=== PATIENT | male | born 1965 | race Caucasian/White ===

== ENCOUNTER → 2017-08-15 | Outpatient (CLI) | payer BC | END | disposition home or self-care (01) | LOC: C.RDSM 15:41 | PROVIDERS: ATTEND Orthopaedic Surgery | DX: R52 Pain, unspecified (principal) ==

== ENCOUNTER → 2017-09-03 | Outpatient (CLI) | payer OTHER ==
[2017-09-03 10:45] LABS: BASO % 0.1 %; BASO ABS # 0.01 K/uL (0-0.2); EOS % 1.3 %; EOS ABS # 0.09 K/uL (0-0.5); HEMATOCRIT 46.1 % (42-52); HEMOGLOBIN 16.3 g/dL (14.0-18.0); IG# 0.01 K/uL (0.00-0.02); LYMPH % 31.9 %; LYMPH ABS # 2.25 K/uL (1.2-3.4); MEAN CELL VOLUME 91.3 fL (80-100); MEAN CORPUSCULAR HEMOGLOBIN 32.3 pg (25-34); MEAN CORPUSCULAR HGB CONC 35.4 g/dl (32-36); MEAN PLATELET VOLUME 9.6 fL (7.4-10.4); MONO % 4.8 %; MONO ABS # 0.34 K/uL (0.11-0.59); NEUT % 61.8 %; NEUT ABS # 4.36 K/uL (1.4-6.5); PLATELET COUNT 205 K/uL (130-400); RED CELL DISTRIBUTION WIDTH CV 12.9 % (11.5-14.5); RED CELL DISTRIBUTION WIDTH SD 42.9 fL (36.4-46.3); WHITE BLOOD COUNT 7.06 K/uL (4.8-10.8)
[2017-09-03 11:04] LABS: ALBUMIN 4.1 gm/dl (3.4-5.0); ALT/SGPT 29 U/L (12-78); AST/SGOT 19 U/L (15-37); BLOOD UREA NITROGEN 14 mg/dl (7-18); CALCIUM 9.1 mg/dl (8.5-10.1); CARBON DIOXIDE 32 mmol/L (21-32); CREATININE 1.05 mg/dl (0.60-1.40); GLUCOSE 89 mg/dl (70-99); POTASSIUM 3.6 mmol/L (3.5-5.1); SODIUM 137 mmol/L (136-145)
[2017-09-03 11:06] LABS: ALKALINE PHOSPHATASE 88 U/L (45-117); CHOLESTEROL 161 mg/dl (0-200); LDL CHOLESTEROL CALCULATED 83 mg/dl; TOTAL PROTEIN 7.6 gm/dl (6.4-8.2)
== END | disposition home or self-care (01) ==
LOC: C.LAB1850 09:56
PROVIDERS: ATTEND Physician Assistant
DX: E78.00 Pure hypercholesterolemia, unspecified (principal)

== ENCOUNTER → 2017-09-16 | Outpatient (CLI) | payer OTHER | END | disposition home or self-care (01) | LOC: C.LAB1850 08:51 | PROVIDERS: ATTEND Internal Medicine | DX: Z00.00 Encounter for general adult medical examination without abnormal findings (principal); Z12.5 Encounter for screening for malignant neoplasm of prostate ==

== ENCOUNTER 2022-02-04 05:18 | Inpatient (IN) ==
--- NOTE | 2022-01-30 08:31 | Anesthesiology Consultation ---
Date of Service January 30, 2022 Assessment & Plan (1) Encounter for pre-operative examination: Chart Review Chart Review: Acceptable Risk for Surgery and Patient NOT seen in Pre Admission Testing Consults Requested none History Surgery Operation Date: 02/04/22 08:50 Proposed Procedures p Left Total Shoulder Arthroplasty Hany - Clark Ascencio, Height/Weight Height: 5 ft 6 in Weight: 77.111 kg Allergies Allergy/AdvReac Type Severity Reaction Status Date / Time cat dander Allergy Verified 01/29/22 15:32 dog dander Allergy Verified 01/29/22 15:32 grass pollen Allergy Verified 01/29/22 15:32 house dust mite Allergy Verified 01/29/22 15:32 mold Allergy Verified 01/29/22 15:32 ragweed pollen Allergy Verified 01/29/22 15:32 tree and shrub pollen Allergy Verified 01/29/22 15:32 weed pollen Allergy Verified 01/29/22 15:32 lisinopril AdvReac Unknown Swelling Verified 01/29/22 15:32 of the lips potential ? amlodipine AdvReac swelling Verified 01/29/22 15:32 Medications Home Medications Medication Instructions Recorded Confirmed Last Taken lorazepam 0.5 mg tablet 0.5 mg PO DAILY PRN #30 tab 06/01/21 01/29/22 Unknown fluticasone propionate 50 2 spray INTRANASAL QPM 07/12/21 01/29/22 Unknown mcg/actuation nasal spray,suspension cholecalciferol (vitamin D3) 2,000 units PO QAM 07/17/21 01/29/22 Unknown cyanocobalamin (vitamin B-12) 1,000 mcg PO QAM 07/17/21 01/29/22 Unknown bupropion HCl 100 mg tablet,12 hr 100 mg PO QAM #30 ea 08/10/21 01/29/22 Unknown sustained-release (Wellbutrin SR) atorvastatin 10 mg tablet 10 mg PO QAM #90 tab 10/11/21 01/29/22 Unknown allergy drops 1 dose SUBLINGUAL TID 01/04/22 01/29/22 Unknown losartan 100 1 tab PO QAM #90 tab 01/16/22 01/29/22 Unknown mg-hydrochlorothiazide 25 mg tablet pregabalin 100 mg capsule (Lyrica) 100 mg PO QPM #90 cap 01/22/22 01/29/22 Unknown metoprolol succinate 25 mg 25 mg PO QAM 01/29/22 01/29/22 Unknown tablet,extended release 24 hr Past Medical History Medical History Anxiety stable per pt, following with PCP and therapist Arrhythmia Chronic intermittent palpitations without associated symptoms, negative cardiac work-up at time of onset years ago per pt. Denies change or worsening. Depression stable per pt, following with PCP and therapist Diverticulitis last episode 2019, follows with PCP and routine colonoscopies Heart palpitations recent holter monitor study [place] -- per pt, wnl. sees Sreedhar Salamanca PA-C History of COVID-19 11/19, mild symptoms-symptoms fully resolved Hyperlipidemia Hypertension well controlled, stable per pt Osteoarthritis Tinnitus, bilateral Worse left Past Family History Family History Mother Cardiac disorder Hypertension Myocardial infarction Grandmother (Maternal) Cardiac disorder Myocardial infarction Sister Hypertension Brother Hypertension Grandfather (Maternal) Stroke Grandmother (Paternal) Cancer Grandfather (Paternal) Myocardial infarction Other No family history of bleeding disorder Denies family history of Ovarian cancer Prostate cancer Breast cancer Colorectal cancer Past Surgical History Surgical History H/O toe surgery Right first toe cheilectomy > 10 yrs ago History of colonoscopy History of sinus surgery Image guided endoscopic sinus surgery, septoplasty, bilateral inferior turbinate reduction 08/06/[address] Lee: Grade 3 view, MAC#3, ETT (size not noted)-atraumatic x 1. No issues per anesthesia record. History of tonsillectomy History of total shoulder replacement right Social History Smoking Status: Never smoker Do You Dip or Chew Tobacco: No Hx Alcohol Use: Yes Alcohol type: beer and wine alcohol intake frequency: 0-2 drinks per day Hx Substance Use: No substance use type: does not use Testing Electrocardiogram Date: 07/17/21 Findings: + NSR @ Echocardiogram Date: 01/21/22 EF: 55 LV Function: normal Valvular Disease: + no significant valvular disease
--- NOTE | 2022-01-31 14:16 | History & Physical Report ---
Date of Service January 31, 2022 Assessment & Plan (1) Osteoarthritis of left shoulder: We will proceed with a left reverse shoulder arthroplasty. Postoperatively he will will be placed in a sling and kept overnight in the hospital for postoperative medical management. He plans to use energy physical therapy upon discharge. History of Present Illness Chief Complaint: Osteoarthritis left shoulder. Primary Care Provider: Bianca Campo MD Anjum is a pleasant 56-year-old male who is been dealing with chronic worsening left shoulder pain. He is a history of a right shoulder replacement in the past which did not go well. After failing extensive conservative treatment with his left shoulder, he is elected proceed with a left reverse shoulder arthroplasty. Allergies Allergy/AdvReac Type Severity Reaction Status Date / Time cat dander Allergy Verified 01/29/22 15:32 dog dander Allergy Verified 01/29/22 15:32 grass pollen Allergy Verified 01/29/22 15:32 house dust mite Allergy Verified 01/29/22 15:32 mold Allergy Verified 01/29/22 15:32 ragweed pollen Allergy Verified 01/29/22 15:32 tree and shrub pollen Allergy Verified 01/29/22 15:32 weed pollen Allergy Verified 01/29/22 15:32 lisinopril AdvReac Unknown Swelling Verified 01/29/22 15:32 of the lips potential ? amlodipine AdvReac swelling Verified 01/29/22 15:32 Home Medications Medication Instructions Recorded Confirmed Type lorazepam 0.5 mg tablet 0.5 mg PO DAILY PRN #30 tab 06/01/21 01/29/22 Rx fluticasone propionate 50 2 spray INTRANASAL QPM 07/12/21 01/29/22 History mcg/actuation nasal spray,suspension cholecalciferol (vitamin D3) 2,000 units PO QAM 07/17/21 01/29/22 History cyanocobalamin (vitamin B-12) 1,000 mcg PO QAM 07/17/21 01/29/22 History bupropion HCl 100 mg tablet,12 hr 100 mg PO QAM #30 ea 08/10/21 01/29/22 Rx sustained-release (Wellbutrin SR) atorvastatin 10 mg tablet 10 mg PO QAM #90 tab 10/11/21 01/29/22 Rx allergy drops 1 dose SUBLINGUAL TID 01/04/22 01/29/22 History losartan 100 1 tab PO QAM #90 tab 01/16/22 01/29/22 Rx mg-hydrochlorothiazide 25 mg tablet pregabalin 100 mg capsule (Lyrica) 100 mg PO QPM #90 cap 01/22/22 01/29/22 Rx metoprolol succinate 25 mg 25 mg PO QAM 01/29/22 01/29/22 History tablet,extended release 24 hr Past Med/Surg History Medical History Anxiety stable per pt, following with PCP and therapist Arrhythmia Chronic intermittent palpitations without associated symptoms, negative cardiac work-up at time of onset years ago per pt. Denies change or worsening. Depression stable per pt, following with PCP and therapist Diverticulitis last episode 2019, follows with PCP and routine colonoscopies Heart palpitations recent holter monitor study [place] -- per pt, wnl. sees Sreedhar Salamanca PA-C History of COVID-19 11/19, mild symptoms-symptoms fully resolved Hyperlipidemia Hypertension well controlled, stable per pt Osteoarthritis Tinnitus, bilateral Worse left Surgical History H/O toe surgery Right first toe cheilectomy > 10 yrs ago History of colonoscopy History of sinus surgery Image guided endoscopic sinus surgery, septoplasty, bilateral inferior turbinate reduction 08/06/[address] Lee: Grade 3 view, MAC#3, ETT (size not noted)-atraumatic x 1. No issues per anesthesia record. History of tonsillectomy History of total shoulder replacement right Family History Mother Cardiac disorder Hypertension Myocardial infarction Grandmother (Maternal) Cardiac disorder Myocardial infarction Sister Hypertension Brother Hypertension Grandfather (Maternal) Stroke Grandmother (Paternal) Cancer Grandfather (Paternal) Myocardial infarction Other No family history of bleeding disorder Denies family history of Ovarian cancer Prostate cancer Breast cancer Colorectal cancer Social History Smoking Status: Never smoker Second Hand Exposure: No; Hx Alcohol Use: Yes Alcohol type: beer and wine Hx Substance Use: No Preferred Language: Belarusian Communication Ability: Effective Farm Mortgage Agent Required: No Beliefs That Will Affect Care: None marital status: Single Current Living Situation: Alone current occupational status: employed 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 Physical Exam On physical examination of the left shoulder, he has about 130 degrees of forward elevation 130 degrees of abduction. He has 4 out of 5 motor strength throughout.. Constitutional WD/WN, vitals as above Eyes PERRL, conjunctivae normal, anicteric sclerae ENMT external ear and nose normal, oropharynx normal Neck trachea midline, no thyromegaly Respiratory normal respiratory effort Cardiovascular RRR, no murmur, no edema Gastrointestinal (Abdomen) normal bowel sounds, soft, nontender, no hepatosplenomegaly Psychiatric A+Ox3, euthymic affect Results & Data Results & Data Laboratory Results . Diagnostic Findings X-rays of the left shoulder do show advanced osteoarthritis with joint space narrowing, osteophyte formation, and [id number] articulation.. PG Care Time/CCT Total # of Minutes Spent Total Time Spent with Patient: Total time spent is greater than 50% in coordination of care (as documented) at patient's floor/unit and/or counseling patient: Coding Level of Care Code None Diagnoses Osteoarthritis of left shoulder M19.012
[2022-02-04] MEDS ORDERED: GABAPENTIN 600 MG DOSE PO SCH (06:00)
[2022-02-04] MEDS ORDERED: TRANEXAMIC ACID 1,000 MG **IV Intra-op IV SCH (06:00)
[2022-02-04] MEDS ORDERED: ceFAZolin 2000MG 2,000 MG/15 ML SYR IV SCH (06:00)
[2022-02-04] MEDS ORDERED: LR 60ML/HR IV SCH (06:00)
[2022-02-04] MEDS ORDERED: FAMOTIDINE 20 MG TAB PO SCH (06:00)
[2022-02-04] MEDS ORDERED: TRANEXAMIC ACID 1,000 MG **IV Pre-op IV SCH (06:00)
[2022-02-04] MEDS ORDERED: ACETAMINOPHEN 500 MG TAB PO SCH (06:00)
[2022-02-04] MEDS ORDERED: dexAMETHasone 4 MG TAB PO SCH (06:00)
[2022-02-04] MEDS ORDERED: ATROPINE SULFATE 0.1 MG/ML 10ML SYR IV PRN (06:29)
[2022-02-04] MEDS ORDERED: ePHEDrine sulfate 50 MG/ML AMP IV PRN (06:29)
[2022-02-04] MEDS ORDERED: fentaNYL citrate 100 MCG/2 ML VIAL IV PRN (06:29)
[2022-02-04] MEDS ORDERED: ONDANSETRON INJ 2 MG/ML 2 ML VIAL IV PRN ×2 (06:29→09:42)
[2022-02-04] MEDS ORDERED: HYDROmorphone INJ 1 MG/ML SYRINGE IV PRN (06:29)
[2022-02-04] MEDS ORDERED: BUPIVACAINE 0.5 % 5 MG/1 ML PF 10ML VIAL ONE (06:30)
[2022-02-04] MEDS ORDERED: ORTHO JOINT ANESTHETIC ONE (06:34)
[2022-02-04] MEDS ORDERED: LIDOCAINE 2% 2 ML VIAL/AMP(20MG/ML) INFIL ONE (06:36)
[2022-02-04] MEDS ORDERED: fentaNYL citrate 100 MCG/2 ML VIAL ONE (06:36)
[2022-02-04] MEDS ORDERED: MIDAZOLAM HCL 1 MG/ML 2ML VIAL ONE (06:36)
[2022-02-04] MEDS ORDERED: PROPOFOL IV EMULSION 10 MG/ML 20 ML VIAL IV ONE (06:36)
--- NOTE | 2022-02-04 06:37 | History & Physical Bridge Note ---
Date of Service February 04, 2022 History & Physical Bridge Note I have examined the patient, reviewed the History & Physical and in the interval since the performance of the History & Physical I have noted the following changes of clinical significance: no changes noted
[2022-02-04] MEDS ORDERED: ROCURONIUM BROMIDE 10 MG/ML 5 ML VIAL IV ONE (07:29)
[2022-02-04] MEDS ORDERED: DEXAMETHASONE SOD INJ 4 MG/ML VIAL ONE (07:30)
[2022-02-04] MEDS ORDERED: ONDANSETRON INJ 2 MG/ML 2 ML VIAL ONE (07:30)
[2022-02-04] MEDS ORDERED: NEOSTIGMINE METHYLSULFATE 1 MG/ML 10ML VIAL ONE (08:06)
[2022-02-04] MEDS ORDERED: GLYCOPYRROLATE 0.2 MG/ML VIAL ONE (08:06)
[2022-02-04] MEDS: Ketorolac (*for OR use only*) 30 MG, dexAMETHasone 4 MG, KETAMINE HCL (**OR use only) 1... INFIL SCH ×2 (08:07→08:30)
--- NOTE | 2022-02-04 08:10 | Operative Report ---
PG Post Operative Report Pre & Post Diagnosis Operation Date: 02/04/22 07:00 Pre-Op Diagnosis: Left Shoulder Osteoarthritis with tendinopathy of the long head of the biceps tendon Post-Op Diagnosis: Left Shoulder Osteoarthritis with tendinopathy of the long head of the biceps tendon I identified the patient and participated in the time-out.: Yes Procedure Operation Date: 02/04/22 07:00 Actual Procedures p Left Reverse Total Shoulder Arthroplasty--Uncemented(Left) with open biceps tenodesis as a distinct and separate procedure (modifier 59)- Clark Ascencio DO Surgeon Clark Ascencio, Cable Technician Clark Chou PAC Estimated Blood Loss 150 Findings Consistent with Post-Op Diagnosis Specimens Left humeral head Complications none Disposition Disposition: Recovery Room Indications Anjum is a pleasant 56-year-old male who is been complaining of chronic increasing left shoulder pain. X-rays and clinical examination were diagnostic for advanced arthritis of his left shoulder. He has a history of a right shoulder replacement which has not done well. It has become loose with some tearing of the rotator cuff. After failing conservative treatment with the left shoulder, he elected to proceed with a left reverse shoulder arthroplasty. Description of Procedure A CPT code modifier 59: The long head of the biceps tendon was enlarged and inflamed consistent with tendinopathy. A tenodesis was opted. This was a separate and distinct portion of the procedure. For these reasons, a CPT code modifier 59 will be added to this case. Implants used: I used a [employer] Comprehensive reverse total shoulder arthroplasty system with a size 9 press fit micro humeral stem, a standard humeral tray and a +3 humeral bearing, a 25 mm small augment baseplate with a 6.5 mm central screw and superior and inferior locking screws, and a size 40 mm eccentric glenosphere. Anjum arrived at [facility] for the above procedure. He was seen in the preoperative holding area and the operative extremity was identified and signed. He was given a preoperative antibiotic, TXA, and an interscalene nerve block. He was taken back to the operating room, laid on table in supine position, and put under general anesthesia. He was then put into the beachchair position. The shoulder was then prepped and draped in sterile fashion. A timeout was done and the patient and the operative extremity was properly identified. A deltopectoral approach was used. Dissection was taken down through the fascia and the deltoid was retracted laterally and the conjoined tendon was retracted medially. The anterior shoulder was exposed. The biceps groove was opened up and the biceps tendon was examined extensively. The biceps tendon demonstrated enlargement and inflammatory changes consistent with longstanding inflammation in the context of osteoarthritis and cuff arthropathy. The long head of the biceps tendon was then tenodesed to the upper border of the pectoralis major. This was a separate and distinct portion of the procedure. The subscapularis was then directly released off the lesser tuberosity with a peel technique. The inferior capsule was released and the humeral head was dislocated. A canal finding reamer was sent down the center of the humeral canal. Sequential reaming up to a size 9 reamer was done. Off that reamer, a proximal humeral resection guide was placed. The proximal humerus was resected at 135 of inclination and 25 of retroversion. Osteophytes were then removed and the glenoid was exposed. Time was spent doing a complete capsular and labral release. The glenoid guide was then placed in the inferior aspect of the glenoid. A 3.2 mm Steinmann pin was then placed into the glenoid vault at 10 of inclination. The glenoid baseplate was then reamed. The final size 25 mm small augment baseplate was then impacted in the place. A 6.5 mm central screw was then placed followed by superior and inferior locking screws. A 40 mm eccentric glenosphere was then impacted into place. Surrounding soft tissues were then injected with 100 cc an orthopedic pain control cocktail. The proximal humerus was then exposed. Sequential broaching of the humerus up to a size 9 broach was done. Off that broach a +3 humeral tray was trialed. The shoulder was then reduced, brought through a full range of motion, and felt to be stable. The shoulder was then dislocated and the broach was removed. The final size 9 micro press-fit humeral stem was then impacted into place. A +3 humeral bearing was then snapped onto a standard offset humeral tray. The humeral tray was then impacted onto the humeral stem. The shoulder was once again reduced, brought through a full range of motion, and felt to be stable. The subscapularis was t hen tenodesed back to the lesser tuberosity with transosseous FiberWire sutures and side to side sutures with the arm in 45 of external rotation. A dilute betadyne lavage was then done for 3 minutes. The joint was then irrigated with normal saline solution. Hemostasis was obtained. The interval was closed with 2-0 Vicryl suture. The skin was then closed with 2-0 Vicryl and ifeanyi. A Silverlon dressing was placed and the arm was rested in a regular arm sling. He was then extubated and transferred to a hospital bed. He taken to the postanesthesia care unit in stable condition. He tolerated the procedure well. Clark Chou PA-C, was present for the entire procedure. He was critical for patient positioning, prepping, draping, retraction exposure, wound closure and application of sterile dressing. I attest to the content of the Intraoperative Record and any orders documented therein. Any exceptions are noted below.
--- NOTE | 2022-02-04 09:26 | XRay Report ---
XR shoulder LT min 2V routine CLINICAL HISTORY: Post shoulder surgery TECHNIQUE: 3 views of the left shoulder were obtained. Comparison: Comparison is made to shoulder radiograph 05/02/2020 FINDINGS: Patient is status post shoulder arthroplasty with expected postsurgical changes including soft tissue swelling, subcutaneous emphysema, and surgical staple placement. No periarticular lucency or hardwar e fracture is seen. IMPRESSION: Expected postoperative appearance status post placement of shoulder arthroplasty. ACT 112: Negative or not required by law. Electronically signed by: Pramod Becker M.D. 02/04/2022 9:24 AM
[2022-02-04] MEDS ORDERED: NALOXONE HCL 0.4 MG/1 ML VIAL/CARP IV PRN (09:42)
[2022-02-04] MEDS ORDERED: oxyCODONE HCL IR 5 MG TAB (IMMEDIATE RELEASE) PO PRN (09:42)
[2022-02-04] MEDS ORDERED: LORazepam 0.5 MG TAB PO PRN (09:42)
[2022-02-04] MEDS ORDERED: HYDROmorphone INJ 0.5 MG/0.5 ML SYR IV PRN (09:42)
[2022-02-04] MEDS ORDERED: MAGNESIUM HYDROXIDE SUSP 30 ML UDC PO PRN (09:42)
[2022-02-04] MEDS ORDERED: bisacodyL 10 MG SUPP PR PRN (09:42)
[2022-02-04] MEDS ORDERED: METOCLOPRAMIDE HCL INJ 5 MG/ML 2 ML VIAL IV PRN (09:42)
[2022-02-04] MEDS: KETOROLAC 30 MG/ML VIAL IV SCH ×3 (10:55→22:39)
[2022-02-04] MEDS: buPROPion SR 100 MG TABCR PO SCH (10:56)
[2022-02-04] MEDS: SODIUM CHLORIDE 0.9% 1000ML 1,000 ML IV SCH ×2 (10:59→20:57)
[2022-02-04] MEDS: LOSARTAN/HCTZ 50/12.5MG TAB PO SCH (12:43)
[2022-02-04] MEDS: ATORVASTATIN 10 MG TAB PO SCH (12:43)
[2022-02-04] MEDS: DOCUSATE SODIUM 100 MG CAP PO SCH ×2 (12:44→20:55)
[2022-02-04] MEDS: MULTIVITAMIN TAB PO SCH (12:44)
[2022-02-04] MEDS: ACETAMINOPHEN 500 MG TAB PO SCH ×2 (12:45→22:39)
--- NOTE | 2022-02-04 14:40 | Anesthesiology Progress Note ---
Date of Service February 04, 2022 Anesthesia Post Procedure Vital Signs Vital Signs: Temp Pulse Pulse Resp BP Pulse Ox 02/04/22 12:30 36.3 C L 83 16 124/81 97 02/04/22 11:30 36.6 C 78 16 121/76 96 02/04/22 10:30 36.4 C L 73 16 130/83 95 02/04/22 10:00 36.5 C 79 16 112/75 95 02/04/22 09:30 36.4 C L 75 16 120/77 98 02/04/22 09:20 36.4 C L 71 14 126/75 92 02/04/22 09:10 73 14 120/81 93 02/04/22 09:00 69 12 137/84 100 02/04/22 08:50 70 12 137/89 100 02/04/22 08:40 74 18 137/93 100 02/04/22 08:32 35.6 C L 79 16 144/102 H 98 02/04/22 05:46 36.7 C 72 16 155/102 H 100 Pain Intensity Left Shoulder: Pain Intensity: 3 Transfer of Care Handoff Completed per policy Notes Mental Status: alert / awake / arousable and participated in evaluation Patient Amnestic to Procedure: Yes Nausea / Vomiting: adequately controlled Pain: adequately controlled Airway Patency, RR, SpO2: stable & adequate BP & HR: stable & adequate Hydration State: stable & adequate Anesthetic Complications: no major complications apparent and Pt Satisfied with anesthetic care
[2022-02-04] MEDS: ceFAZolin 2000MG 2,000 MG/15 ML SYR IV SCH ×2 (16:29→22:40)
[2022-02-04] MEDS ORDERED: SENNA 8.6 MG TAB PO SCH (21:00)
[2022-02-04] MEDS ORDERED: PREGABALIN 100 MG CAP PO SCH (21:00)
[2022-02-04] MEDS ORDERED: FLUTICASONE PROPIONATE NA SPR 16 GM BTL SCH (21:00)
[2022-02-05] MEDS: KETOROLAC 30 MG/ML VIAL IV SCH ×2 (03:52→09:32)
[2022-02-05] MEDS: ACETAMINOPHEN 500 MG TAB PO SCH (05:58)
--- NOTE | 2022-02-05 07:06 | Orthopedic Progress Note ---
Date of Service February 05, 2022 Assessment & Plan (1) Status post reverse total replacement of left shoulder: Overall is doing well. Is not having much pain in the left shoulder. He will be seen by physical therapy today for ambulation and range of motion exercises. He can be discharged home later today. He will follow-up with orthopedics in 2 weeks. Zackery Valero was seen and examined at bedside this morning. Overall is doing very well. Is not having much pain in the left shoulder. He was able to get some sleep last night. Is no complaints. Review of Systems All systems reviewed & are unremarkable except as noted in HPI & below. Physical Exam On physical examination of the left shoulder, the dressing is clean and dry. He is wearing his sling as instructed. He has active motion of his hand and his wrist. Results & Data Results & Data Laboratory Results . Diagnostic Findings Postoperative x-rays of the left shoulder show the prosthesis to be in anatomic alignment without any evidence of fracture, screws, or loosening. PG Care Time/CCT Total # of Minutes Spent Total Time Spent with Patient: Total time spent is greater than 50% in coordination of care (as documented) at patient's floor/unit and/or counseling patient: Coding Level of Care Code 04603 Post Operative Follow-Up Diagnoses Status post reverse total replacement of left shoulder Z96.612
--- NOTE | 2022-02-05 07:07 | Discharge Summary ---
Date of Service February 05, 2022 Admission HPI (Per Admitting) Anjum is a pleasant 56-year-old male who is been dealing with chronic worsening left shoulder pain. He is a history of a right shoulder replacement in the past which did not go well. After failing extensive conservative treatment with his left shoulder, he is elected proceed with a left reverse shoulder arthroplasty. Admission Exam (Per Admitting) On physical examination of the left shoulder, he has about 130 degrees of forward elevation 130 degrees of abduction. He has 4 out of 5 motor strength throughout.. Principal Diagnosis Same as "Discharge Diagnosis" noted below under Discharge Instructions. Discharge Exam On physical examination of the left shoulder, the dressing is clean and dry. He is wearing his sling as instructed. He has active motion of his hand and his wrist. Discharge Data Procedures Performed Operation Date: 02/04/22 07:00 Actual Procedures p Left Reverse Total Shoulder Arthroplasty--Uncemented(Left) - Clark Ascencio DO Ordered Studies 02/04/22 05:00 US - OR guided needle placemen Routine Hospital Course (1) Status post reverse total replacement of left shoulder: On February 04, 2022 Anjum arrived at [facility] and underwent a left reverse shoulder replacement without complication. He had a general anesthetic and a left interscalene nerve block. Postoperatively he was placed in a sling and transferred to the general orthopedic floors. His hospital course was uneventful. On postop day #1, his vital signs were stable and his pain was well controlled. He was able to participate well with physical therapy doing ambulation and range of motion exercises. He was then discharged home. He will follow-up with orthopedics in 2 weeks. PG Care Time/CCT Total # of Minutes Spent Total Time Spent with Patient: Total time spent is greater than 50% in coordination of care (as documented) at patient's floor/unit and/or counseling patient: Discharge Plan Discharge Items Patient Disposition: Home - Home Health Services Reason For Visit: Left Shoulder Degenerative Joint Disease Discharge Diagnosis: Left reverse shoulder replacement Activity: As commented below Non-emergency contact: Surgeon Call non-emergency contact if: your wound has increased redness and your wound has increased drainage Follow-up/Referrals: Bianca Campo MD [Primary Care Provider] - Diet: Regular Addtl Attending Provider Instructions: Activity and Therapy Recommendations: * If you are using [facility] then therapy will be provided at your home until they feel you have accomplished all of your goals. * If you are using [facility] then Physical Therapy will be provided until they feel you are ready to start Outpatient Physical Therapy. * If you are not using home therapy then Outpatient Physical Therapy should start about 3-5 days from your day of surgery. Therapy will last about 8-12 weeks * Wear your sling for 3 weeks, unless otherwise instructed. You may remove your sling to shower and to dress, but otherwise, you should be in your sling at all times, including while sleeping * The shoulder replacement is very stable and you can use your hand while in the sling * You were shown a series of exercises in the hospital. Do these exercises daily including the exercises you were shown in physical therapy. Medications: * Narcotic You will likely be sent home from the hospital with a prescription for the narcotic pain medication that worked best throughout your stay. * Other medications may be prescribed for specific circumstances. If you have any questions, please call the office at . * Resume previous home medications unless otherwise instructed Dressing Care: Leave the Silverlon dressing in place for 7 days. After 7 days you may remove the dressing. If the incision is not draining then you may leave the ifeanyi open to air. If there is a little bit of drainage or if the ifeanyi are getting stuck on your clothing then cover the incision with a dry dressing. The ifeanyi will be removed at your 2 week follow-up appointment. Showering: You may shower with the Silverlon dressing in place. Do not let the shower spray hit the dressing directly. Pat the Silverlon dressing dry. If the dressing becomes wet underneath, then simply remove the dressing. Keep the incision dry until you are 7 days out from the day of surgery. After 7 days you may remove the Silverlon dressing and shower with the ifeanyi exposed. Let soapy water run over the ifeanyi and pat them dry. Do not scrub or soak the incision. Things To Watch For: * Drainage from the incision site that occurs more than one week after your surgery. * Increased redness at the incision site. * Fever above 102 degrees Fahrenheit. * Unusual chest pain or shortness of breath. * Call [facility] at with any of the above problems Follow-Up Visit: Follow-up with Dr. Ascencio's PA (Clark Chou) 2-3 weeks after your day of jerry catherine. He will remove your ifeanyi and answer any questions. If you have any additional questions or concerns, Dr Ascencio is usually in the office at the same time and will be available An appointment was probably scheduled when you signed-up for surgery in the office. If you have any questions call More detailed instructions as well as Frequently Asked Questions were provided i n a folder by our office when you signed-up for surgery. Please review these instructions when you get home. If you have any further questions or concerns, please feel free to call the office at [phone] Pending Studies at Discharge: No Stand-Alone Forms: [facility] Medications and DC Order Prescriptions: Continued lorazepam 0.5 mg tablet 0.5 mg PO DAILY PRN (Reason: Anxiety) Qty: 30 RF: 0 pregabalin [Lyrica] 100 mg capsule 100 mg PO QPM Qty: 90 RF: 3 oxycodone-acetaminophen [Percocet] 5-325 mg tablet 1 tab PO Q6H PRN (Reason: pain) Qty: 30 RF: 0 bupropion HCl [Wellbutrin SR] 100 mg tablet sustained-release 12 hr 100 mg PO QAM Qty: 30 RF: 5 allergy drops 1 dose sublingual TID RF: 0 fluticasone propionate [Flonase Allergy Relief] 50 mcg/actuation spray,suspension 2 spray intranasal QPM RF: 0 cholecalciferol (vitamin D3) 2,000 units PO QAM RF: 0 cyanocobalamin (vitamin B-12) 1,000 mcg PO QAM RF: 0 metoprolol succinate 25 mg tablet extended release 24 hr 25 mg PO QAM RF: 0 atorvastatin [Lipitor] 10 mg tablet 10 mg PO QAM RF: 0 losartan-hydrochlorothiazide [Hyzaar] 100-25 mg tablet 1 tab PO QAM RF: 0 Discharge Orders: Discharge Order (Routine); Ordered 02/05/22 Ordered By: Clark Ascencio Admission Data Admit Date/Time: 02/04/22 08:27 Attending Provider: Clark Ascencio Admit Provider: Clark Ascencio Primary Care Provider: Bianca Campo V.
[2022-02-05] MEDS ORDERED: dexAMETHasone 4 MG TAB PO SCH (08:00)
[2022-02-05] MEDS: LOSARTAN/HCTZ 50/12.5MG TAB PO SCH (08:03)
[2022-02-05] MEDS: buPROPion SR 100 MG TABCR PO SCH (08:03)
[2022-02-05] MEDS: ATORVASTATIN 10 MG TAB PO SCH (08:03)
[2022-02-05] MEDS: MULTIVITAMIN TAB PO SCH (08:03)
[2022-02-05] MEDS: DOCUSATE SODIUM 100 MG CAP PO SCH (08:03)
[2022-02-05] MEDS ORDERED: METOPROLOL SUCC 25MG EXT REL TAB PO SCH (09:00)
== END 2022-02-05 11:00 | disposition home or self-care (01) | DRG 483 ==
LOC: ASU 05:18 → 3E 08:27

== ENCOUNTER 2022-08-05 08:21 | Observation (INO) ==
--- NOTE | 2022-07-04 11:16 | PAT Medication Instructions ---
Medication Instructions Date of Service July 04, 2022 Home Medications Medication Instructions Recorded pregabalin 100 mg capsule (Lyrica) 100 mg PO QPM #90 caps 01/22/22 mupirocin 2 % topical ointment 1 applic topical BID #15 grams 06/13/22 bupropion HCl 150 mg 24 hr tablet, 150 mg PO QAM #30 tabs 06/14/22 extended release (Wellbutrin XL) lorazepam 0.5 mg tablet 0.5 mg PO DAILY PRN Anxiety #30 06/14/22 tabs fluticasone propionate 50 See Rx Instructions intranasal QPM 06/24/22 mcg/actuation nasal #16 grams spray,suspension (Flonase Allergy Relief) allergy drops 1 dose sublingual TID pregabalin 100 mg capsule (Lyrica) 100 mg PO QPM atorvastatin 10 mg tablet (Lipitor) 10 mg PO QAM losartan 100 mg-hydrochlorothiazide 25 mg tablet (Hyzaar) 1 tab PO QAM cholecalciferol (vitamin D3) 50 mcg (2,000 unit) capsule 50 mcg PO QAM cyanocobalamin (vitamin B-12) 1,000 mcg capsule 1,000 mcg PO QAM mupirocin 2 % topical ointment 1 applic topical BID bupropion HCl 150 mg 24 hr tablet, extended release (Wellbutrin XL) 150 mg PO QAM lorazepam 0.5 mg tablet 0.5 mg PO DAILY PRN fluticasone propionate 50 mcg/actuation nasal spray,suspension (Flonase Allergy Relief) See Rx Instructions intranasal QPM metoprolol succinate 50 mg tablet,extended release 24 hr 50 mg PO QAM Continue as directed lorazepam 0.5 mg tablet 0.5 mg PO DAILY PRN(if needed) STOP taking 24 hours before surgery mupirocin 2 % topical ointment 1 applic topical BID DO NOT take the morning of surgery allergy drops 1 dose sublingual TID losartan 100 mg-hydrochlorothiazide 25 mg tablet (Hyzaar) 1 tab PO QAM cholecalciferol (vitamin D3) 50 mcg (2,000 unit) capsule 50 mcg PO QAM cyanocobalamin (vitamin B-12) 1,000 mcg capsule 1,000 mcg PO QAM Take morning of surgery With a small sip of water, OTHERWISE NOTHING TO EAT OR DRINK AFTER MIDNIGHT: atorvastatin 10 mg tablet (Lipitor) 10 mg PO QAM bupropion HCl 150 mg 24 hr tablet, extended release (Wellbutrin XL) 150 mg PO QAM metoprolol succinate 50 mg tablet,extended release 24 hr 50 mg PO QAM Take evening before surgery allergy drops 1 dose sublingual TID pregabalin 100 mg capsule (Lyrica) 100 mg PO QPM fluticasone propionate 50 mcg/actuation nasal spray,suspension (Flonase Allergy Relief) See Rx Instructions intranasal QPM Other Notes If you have any questions please call us at [phone] or [phone] or [phone] or [phone]
--- NOTE | 2022-07-09 11:27 | Anesthesiology Consultation ---
Date of Service July 09, 2022 Assessment & Plan (1) Encounter for pre-operative examination: - cardiology 06/06/22 [place]: "...Hypertension, Dyslipidemia, Idiopathic Urticaria, Seasonal Affective Disorder, Diverticulosis, BPH, SARS Co-V 2 Infection December 2021, Allergic Rhinitis, Symptomatic PVC's, and Borderline Reduced LV Systolic Function on past Echocardiogram 11/14/20 showing an LVEF 45% to 50%, borderline concentric LVH, no definite wall motion abnormality, and no significant valvular pathology. Patient presents today for evaluation of an Atypical Chest Pain Syndrome...05/24/2022 complaining sharp stabbing chest pain x 2 episodes that lasted for 1-2 seconds and resolved spontaneously. These occurred at a state of rest, were unrelated to exertion or breathing, and he had no radiation of the discomfort nor did he have any associated symptoms. He specifically denies any associated nausea, vomiting, diaphoresis, or dyspnea. He had 2 more episodes of stabbing chest pain last evening while at a state of breath but they were much less intense than when they initially occurred. I have reassured the patient that has chest pain is very atypical and is most likely secondary to prior brachial plexus block when he had his left shoulder replaced or it may originate from the chest wall itself. I have reassured him that this is very benign and that no further intervention is needed. We did discuss what classic anginal symptoms are and how they differ from his atypical chest pain. Patient was reassured by this. Patient is still noticing PVCs and is wondering what we can do about it. We discussed his last Echocardiogram in detail. His LV systolic function is normal, LVEF was 55%..." - Outpatient joint assessment: Patient is currently scheduled for inpatient pathway. If re-evaluated pending system levels during current pandemic/surgeon requests outpatient pathway, patient is NOT acceptable candidate for outpatient joint program from anesthesia standpoint. Chart Review Chart Review: Acceptable Risk for Surgery and Patient seen in Pre Admission Testing Teaching & Discussion Pre-Anesthesia Teaching/Discussion Notes: Instructed NPO after midnight before surgery, except medications with 15 cc of water. Medication instructions provided according to the PAT guidelines. History Surgery Operation Date: 08/05/22 07:00 Proposed Procedures p Revision Right Total Shoulder Arthroplasty to - Clark Ascencio DO s Right Reverse Total Shoulder Arthroplasty - Clark Ascencio DO Height/Weight Height: 5 ft 6 in Weight: 79.379 kg Allergies Allergy/AdvReac Type Severity Reaction Status Date / Time amlodipine Allergy Severe swelling - Verified 07/03/22 12:51 ankles cat dander Allergy Verified 07/03/22 12:51 dog dander Allergy Verified 07/03/22 12:51 grass pollen Allergy Verified 07/03/22 12:51 house dust mite Allergy Verified 07/03/22 12:51 mold Allergy Verified 07/03/22 12:51 ragweed pollen Allergy Verified 07/03/22 12:51 tree and shrub pollen Allergy Verified 07/03/22 12:51 weed pollen Allergy Verified 07/03/22 12:51 lisinopril AdvReac Severe Swelling Verified 07/03/22 12:51 of the lips potential - ankles Medications Home Medications Medication Instructions Recorded Confirmed Last Taken allergy drops 1 dose sublingual TID 01/04/22 07/03/22 02/03/22 22:00 pregabalin 100 mg capsule (Lyrica) 100 mg PO QPM #90 caps 01/22/22 07/03/22 02/03/22 22:00 atorvastatin 10 mg tablet (Lipitor) 10 mg PO QAM 02/04/22 07/03/22 02/03/22 08:00 losartan 100 1 tab PO QAM 02/04/22 07/03/22 02/03/22 08:00 mg-hydrochlorothiazide 25 mg tablet (Hyzaar) cholecalciferol (vitamin D3) 50 50 mcg PO QAM 06/12/22 07/03/22 Unknown mcg (2,000 unit) capsule cyanocobalamin (vitamin B-12) 1,000 mcg PO QAM 06/12/22 07/03/22 Unknown 1,000 mcg capsule mupirocin 2 % topical ointment 1 applic topical BID #15 grams 06/13/22 07/03/22 Unknown bupropion HCl 150 mg 24 hr tablet, 150 mg PO QAM #30 tabs 06/14/22 07/03/22 Unknown extended release (Wellbutrin XL) lorazepam 0.5 mg tablet 0.5 mg PO DAILY PRN Anxiety #30 06/14/22 07/03/22 Unknown tabs fluticasone propionate 50 See Rx Instructions intranasal QPM 06/24/22 07/03/22 Unknown mcg/actuation nasal #16 grams spray,suspension (Flonase Allergy Relief) metoprolol succinate 50 mg 50 mg PO QAM 07/03/22 07/03/22 Unknown tablet,extended release 24 hr Past Medical History Medical History (Updated 07/09/22 @ 16:16 by Charo Ramirez PA-C) Abnormal echocardiogram EF 45-50% 10/2020 echo, NOW EF 55% 12/2021 echo, follows with [facility] Anxiety and depression Atypical chest pain recently evaluated by [facility]ology, suspected to be d/t prior brachial plexus block or chest wall discomfort per last office note; pt states has not had recent recurrence Diverticulitis 2-3 yrs ago, denies additional episodes History of COVID-19 11/19, denies hospitalization-mild symptoms-symptoms fully resolved Hyperlipidemia Hypertension well controlled, stable per pt Symptomatic PVCs chronic, intermittent palpitations, denies change or worsening, follows with [facility]ology Tinnitus, bilateral Worse left Patient denies h/o stroke, seizures, heart attack, heart failure, DM, blood clots or blood transfusions. Exercise / Class Metabolic Activity II 4-5 Yardwork/Stairs/Walk up hill (denies CP or SOB with 1 FOS) Past Family History Family History Mother Cardiac disorder Myocardial infarction Hypertension Grandmother (Maternal) Cardiac disorder Myocardial infarction Sister Hypertension Brother Hypertension Grandfather (Maternal) Stroke Grandmother (Paternal) Cancer Grandfather (Paternal) Myocardial infarction Other No family history of adverse response to anesthesia No family history of bleeding disorder Denies family history of Ovarian cancer Prostate cancer Breast cancer Colorectal cancer Past Surgical History Surgical History (Updated 07/09/22 @ 11:23 by Charo Ramirez PA-C) H/O toe surgery Right first toe cheilectomy > 10 yrs ago History of colonoscopy History of right shoulder replacement History of sinus surgery Image guided endoscopic sinus surgery, septoplasty, bilateral inferior turbinate reduction 08/06/[address] Lee: Grade 3 view, MAC#3, ETT (size not noted)-atraumatic x 1. No issues per anesthesia record. History of tonsillectomy History of total shoulder replacement LEFT 02/04/2222 Grade 2 view, MAC 3, ETT 7.5 + PNB. RT. Past Anesthesia History No Hx of Anesthesia Complications and No Family Hx of Anesthesia Complications History of PONV No Hx of PONV and No Hx of Motion Sickness Social History Smoking Status: Former smoker tobacco type: cigarettes Do You Dip or Chew Tobacco: No Smoking End Date: SMOKED IN COLLEGE FOR 6 MONTHS "SOCIALLY" Hx Alcohol Use: Yes Alcohol type: beer and hard liquor alcohol intake frequency: 0-2 drinks per day (1 alcoholic cider nightly) Hx Substance Use: Yes (h/o medical marijuana use, does not currently use in any capacity per pt) Review of Systems Patient denies chest pain, shortness of breath, dyspnea on exertion, snoring, witnessed apneas, reflux, fever, chills, cough, or wheezing. Physical Exam Vital Signs Vitals BP 123/79 P 59 SP02 96% on RA RESP 17 Physical Full cervical extension range of motion without pain TMD 3.5 finger breadths Mallampati Score 2 Dentition: intact, several caps/crowns; denies chipped or loose teeth, implants or bridges Lungs: normal respiratory effort. Clear throughout to auscultation, no adventitious breath sounds Cardiac: regular rate and rhythm, no murmurs noted Carotid arteries: negative bruit bilat Lab Results Anesthesia Preop Results Results Anesthesia Widget: WBC 7.08 K/ul (4.8-10.8) 07/09/22 Hgb 15.9 g/dl (14.0-18.0) 07/09/22 Hct 47.0 % (40.1-51.0) 07/09/22 Plt 211 K/uL (130-400) 07/09/22 Na 141 mmol/L (136-145) 07/09/22 K 3.9 mmol/L (3.5-5.1) 07/09/22 Cl 104 mmol/L (98-107) 07/09/22 CO2 31 mmol/L (21-32) 07/09/22 BUN 12 mg/dl (6-23) 07/09/22 Creat 1.10 mg/dl (0.6-1.4) 07/09/22 Glucose Level 74 mg/dl (70-99(Fasting)) 07/09/22 PT 10.6 Seconds (9.0-12.0) 07/09/22 PTT 26.5 Seconds (21.0-31.0) 07/09/22 INR 1.0 (0.9-1.1) 07/09/22 Blood Type B Positive 07/09/22 Antibody Screen NEGATIVE 07/09/22 Testing Electrocardiogram Date: 07/09/22 Sinus bradycardia, rate 59 bpm Chest X-Ray Date: 07/09/22 No pneumothorax. No pleural effusions. The heart is normal in size. The lungs are clear. Bilateral total shoulder arthroplasties are partially visualized. IMPRESSION: No significant change compared to the prior study. No acute process. Echocardiogram Date: 01/21/22 EF 55% No regional wall motion abnormalities No LVH No significant valvular abnormalities Type 1 diastolic dysfunction Other Testing Holter monitor 12/13/21 Rhythm is sinus rhythm, average HR 95 bpm, min HR 64 bpm. Max HR 125 bpm Very rare isolated APDs isolated. No complex atrial arrhythmia Isolated VPDs noted. No complex ventricular arrhythmia
[~2022-08-05 08:21] MED LIST: ACETAMINOPHEN 500 MG TAB PO SCH; BUPIVACAINE 0.5 % 5 MG/1 ML PF 10ML VIAL ONE; FAMOTIDINE 20 MG TAB PO SCH; GABAPENTIN 600 MG DOSE PO SCH; LR 15ML/HR IV SCH; LR 60ML/HR IV SCH; ORTHO JOINT MIX INFIL SCH; TRANEXAMIC ACID 1,000 MG **IV Intra-op IV SCH; TRANEXAMIC ACID 1,000 MG **IV Pre-op IV SCH; ceFAZolin 2000MG 2,000 MG/15 ML SYR IV SCH; dexAMETHasone 4 MG TAB PO SCH
[2022-08-05] MEDS ORDERED: PROPOFOL IV EMULSION 10 MG/ML 20 ML VIAL IV ONE (09:46)
[2022-08-05] MEDS ORDERED: fentaNYL citrate 100 MCG/2 ML VIAL ONE (09:47)
[2022-08-05] MEDS ORDERED: MIDAZOLAM HCL 1 MG/ML 2ML VIAL ONE (09:47)
--- NOTE | 2022-08-05 10:10 | History & Physical Bridge Note ---
Date of Service August 05, 2022 History & Physical Bridge Note I have examined the patient, reviewed the History & Physical and in the interval since the performance of the History & Physical I have noted the following changes of clinical significance: no changes noted
[2022-08-05] MEDS ORDERED: ORTHO JOINT ANESTHETIC ONE (10:41)
[2022-08-05] MEDS ORDERED: ePHEDrine sulfate 50 MG/ML AMP ONE (11:35)
[2022-08-05] MEDS ORDERED: ONDANSETRON INJ 2 MG/ML 2 ML VIAL ONE (12:39)
--- NOTE | 2022-08-05 12:51 | Operative Report ---
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 I inserted a Tornier size 4B long PTC stem with a +0 low 1.5 offset tray and a 39+6 mm reversed insert. I used a 39 mm eccentric glenosphere on a 25 mm full wedge 15 degree baseplate with a single central screw and 4 peripheral screws. On August 05, 2022 Anjum arrived at [facility] for the above procedure. He was seen in the preoperative holding area and the operative extremity was identified and signed. He was given a preoperative antibiotic and a right interscalene nerve block. He was taken back the operating room and laid on the table in supine position. He was put under general anesthesia. He was put in the beachchair position. The right shoulder was prepped and draped in sterile fashion. A timeout was done. The patient and the operative extremity was properly identified. The previous deltopectoral incision was opened back up. Dissection was taken down through the deltopectoral interval and the conjoined tendon was retracted medially and the deltoid was retracted laterally. The shoulder was exposed. The rotator cuff is still intact. A subscapularis peel technique was used and the subscapularis was released and tagged. A little bit of the supraspinatus was released for exposure. The glenoid was then exposed. Time was spent removing any loose tissue fragments. The glenoid was grossly loose and easily removed. There was some bone loss on the glenoid but not much. A guidepin was placed in the center of the previous central peg. A 15 degree wedged component was then reamed. The central boss was then drilled. The final 15 degrees Tornier fully wedged component was then screwed into place. 2 locking screws and 2 compression screws were then placed. I was able to get excellent purchase in the bone and the glenoid component made contact with about 80% of the sleetmute glenoid. A 39 mm +3 offset glenosphere was then impacted into place and the screw was tightened. The surrounding soft tissues were then injected with 100 cc an orthopedic pain control cocktail. The proximal femur was then exposed. A trial tray was used but I was unable to reduce the humerus. Because of this, I had to remove the stent to seated down further. The stem was removed with flexible osteotomes. The stem was then removed with the broach handle and a mallet. There was not much bone loss. Sequential broaching up to a size 4 broach was done. I was able to seat the implant further down. The calcar was reamed. A low 1.5 mm offset tray was then trialed with the polyethylene implant. The shoulder was then reduced. The shoulder was brought through a full range of motion and felt to be stable. The trials were then removed. The final size 4B long PTC stent was then impacted into place. A +0 low 1.5 offset tray was then screwed into place. A 39 mm +6 reversed insert was then snapped into place. The shoulder was then reduced. The shoulder was brought through full range of motion and felt to be stable. The subscapularis was then repaired back to the lesser tuberosity with transosseous FiberWire sutures. The axillary nerve was palpated. The wounds then irrigated. The deltopectoral interval was then closed with 2-0 Vicryl suture. A 3-minute Betadine lavage was done. The skin was then closed with 2-0 Vicryl and ifeanyi. He was then placed in a Silverlon dressing. He was then extubated and transferred to a hospital bed. He was taken to the postanesthesia care unit in stable condition. He tolerated the procedure well. Clark Chou PA-C, was present for the entire procedure. He was critical for patient positioning, prepping, draping, retraction exposure, wound closure and application of sterile dressing. I attest to the content of the Intraoperative Record and any orders documented therein. Any exceptions are noted below.
--- NOTE | 2022-08-05 13:52 | XRay Report ---
XR shoulder RT min 2V routine CLINICAL HISTORY: Post shoulder surgery COMPARISON STUDY: None. FINDINGS: Status post reverse right total shoulder arthroplasty. The hardware appears intact. Skin st aples are in place. No fracture or dislocation. IMPRESSION: Status post reverse right total shoulder arthroplasty. No evidence for hardware complica tion. ACT 112: Negative or not required by law. Electronically signed by: Garry Marcelino M.D. 08/05/2022 1:50 PM
[2022-08-05] MEDS ORDERED: fentaNYL citrate 100 MCG/2 ML VIAL IV PRN (14:18)
[2022-08-05] MEDS ORDERED: ATROPINE SULFATE 0.1 MG/ML 10ML SYR IV PRN (14:18)
[2022-08-05] MEDS ORDERED: ONDANSETRON INJ 2 MG/ML 2 ML VIAL IV PRN ×2 (14:18→14:29)
[2022-08-05] MEDS ORDERED: ePHEDrine sulfate 50 MG/ML AMP IV PRN (14:18)
--- NOTE | 2022-08-05 14:19 | Anesthesiology Progress Note ---
Date of Service August 05, 2022 Anesthesia Post Procedure Vital Signs Vital Signs: Temp Pulse Pulse Resp BP Pulse Ox O2 Del Method 08/05/22 14:15 74 17 101/65 95 Nasal Cannula 08/05/22 13:45 36.3 C L 70 13 124/73 95 Nasal Cannula 08/05/22 13:35 70 13 106/71 96 Nasal Cannula 08/05/22 13:25 69 14 114/71 96 Nasal Cannula 08/05/22 13:15 69 13 123/76 94 Oxymask 08/05/22 13:05 36.0 C L 73 22 117/75 96 Oxymask 08/05/22 08:54 36.8 C 73 18 162/89 H 95 Room Air O2 Flow Rate 08/05/22 14:15 2 08/05/22 13:45 2 08/05/22 13:35 2 08/05/22 13:25 2 08/05/22 13:15 4 08/05/22 13:05 4 08/05/22 08:54 Pain Intensity Right Arm: Pain Intensity: 7 Transfer of Care Handoff Completed per policy Notes Mental Status: alert / awake / arousable Patient Amnestic to Procedure: Yes Nausea / Vomiting: adequately controlled Pain: adequately controlled Airway Patency, RR, SpO2: stable & adequate BP & HR: stable & adequate Hydration State: stable & adequate Anesthetic Complications: no major complications apparent
[2022-08-05] MEDS ORDERED: HYDROmorphone INJ 0.5 MG/0.5 ML SYR IV PRN (14:29)
[2022-08-05] MEDS ORDERED: METOCLOPRAMIDE HCL INJ 5 MG/ML 2 ML VIAL IV PRN (14:29)
[2022-08-05] MEDS ORDERED: MAGNESIUM HYDROXIDE SUSP 30 ML UDC PO PRN (14:29)
[2022-08-05] MEDS ORDERED: LORazepam 0.5 MG TAB PO PRN (14:29)
[2022-08-05] MEDS ORDERED: SODIUM CHLORIDE 0.9% 1000ML 1,000 ML IV SCH (14:29)
[2022-08-05] MEDS ORDERED: oxyCODONE HCL IR 5 MG TAB (IMMEDIATE RELEASE) PO PRN (14:29)
[2022-08-05] MEDS ORDERED: bisacodyL 10 MG SUPP PR PRN (14:29)
[2022-08-05] MEDS ORDERED: NALOXONE HCL 0.4 MG/1 ML VIAL/CARP IV PRN (14:29)
[2022-08-05] MEDS: ACETAMINOPHEN 500 MG TAB PO SCH ×2 (15:25→20:07)
[2022-08-05] MEDS: KETOROLAC 30 MG/ML VIAL IV SCH ×2 (15:26→19:57)
[2022-08-05] MEDS: ceFAZolin 2000MG 2,000 MG/15 ML SYR IV SCH (19:58)
[2022-08-05] MEDS: DOCUSATE SODIUM 100 MG CAP PO SCH (20:06)
[2022-08-05] MEDS ORDERED: PREGABALIN 100 MG CAP PO SCH (21:00)
[2022-08-05] MEDS ORDERED: FLUTICASONE PROPIONATE NA SPR 16 GM BTL PRN (21:00)
[2022-08-05] MEDS ORDERED: SENNA 8.6 MG TAB PO SCH (21:00)
[2022-08-06] MEDS: KETOROLAC 30 MG/ML VIAL IV SCH ×3 (01:38→11:44)
[2022-08-06] MEDS: ceFAZolin 2000MG 2,000 MG/15 ML SYR IV SCH (02:00)
[2022-08-06] MEDS: ACETAMINOPHEN 500 MG TAB PO SCH (06:17)
--- NOTE | 2022-08-06 06:56 | Orthopedic Progress Note ---
Date of Service August 06, 2022 Assessment & Plan (1) Status post reverse total replacement of right shoulder: Overall is doing very well. Is not having any pain in the right shoulder. He will be seen by physical therapy today for ambulation and range of motion exercises. He can be discharged home later today. He will follow-up with orthopedics in 2 weeks. Zackery Valero was seen and examined at bedside this morning. Overall is doing very well. Is not having any pain in the right shoulder. He was able to get some sleep last night. Has no complaints.. Review of Systems All systems reviewed & are unremarkable except as noted in HPI & below. Physical Exam On physical examination the right shoulder, the dressing is clean and dry. He is wearing his sling as instructed. He has active motion of his hand and his wrist.. Results & Data Results & Data Laboratory Results . Diagnostic Findings Postoperative x-rays of the right shoulder show the prosthesis to be in anatomic alignment without any evidence of fracture, desiccation, or loosening. PG Care Time/CCT Total # of Minutes Spent Total Time Spent with Patient: Total time spent is greater than 50% in coordination of care (as documented) at patient's floor/unit and/or counseling patient: Coding Level of Care Code 60432 Post Operative Follow-Up Diagnoses Status post reverse total replacement of right shoulder Z96.611
--- NOTE | 2022-08-06 06:59 | Discharge Summary ---
Date of Service August 06, 2022 Principal Diagnosis Same as "Discharge Diagnosis" noted below under Discharge Instructions. Discharge Exam On physical examination the right shoulder, the dressing is clean and dry. He is wearing his sling as instructed. He has active motion of his hand and his wrist.. Discharge Data Procedures Performed Operation Date: 08/05/22 10:40 Actual Procedures p Revision Right Total Shoulder Arthroplasty to Right Reverse Total Shoulder Arthroplasty(Right) - Clark Ascencio DO Ordered Studies 08/05/22 05:00 US - OR guided needle placemen Routine Hospital Course (1) Status post reverse total replacement of right shoulder: On August 05, 2022 Anjum arrived at [facility] and underwent a revision right shoulder replacement without complication. He had a general anesthetic and a right interscalene nerve block. Postoperatively he was placed in a sling and transferred to the general orthopedic floors. His hospital course was uneventful. On postop day #1, his vital signs were stable and his pain was well controlled. He was able to participate well with physical therapy doing ambulation and range of motion exercises. He was then discharged home. He will follow-up with orthopedics in 2 weeks. PG Care Time/CCT Total # of Minutes Spent Total Time Spent with Patient: Total time spent is greater than 50% in coordination of care (as documented) at patient's floor/unit and/or counseling patient: Discharge Plan Discharge Items Patient Disposition: Home - Home Health Services Reason For Visit: Painful Right Total Shoulder Arthroplasty Discharge Diagnosis: Right reverse shoulder replacement Activity: Per Instructions section Non-emergency contact: Surgeon Call non-emergency contact if: your wound has increased redness and your wound has increased drainage Follow-up/Referrals: Bianca Campo MD [Primary Care Provider] - Diet: Regular Addtl Attending Provider Instructions: Activity and Therapy Recommendations: * If you are using [facility] then therapy will be provided at your home until they feel you have accomplished all of your goals. * If you are using [facility] then Physical Therapy will be provided until they feel you are ready to start Outpatient Physical Therapy. * If you are not using home therapy then Outpatient Physical Therapy should start about 3-5 days from your day of surgery. Therapy will last about 8-12 weeks * Wear your sling for 3 weeks, unless otherwise instructed. You may remove your sling to shower and to dress, but otherwise, you should be in your sling at all times, including while sleeping * The shoulder replacement is very stable and you can use your hand while in the sling * You were shown a series of exercises in the hospital. Do these exercises daily including the exercises you were shown in physical therapy. Medications: * Narcotic You will likely be sent home from the hospital with a prescription for the narcotic pain medication that worked best throughout your stay. * Other medications may be prescribed for specific circumstances. If you have any questions, please call the office at . * Resume previous home medications unless otherwise instructed Dressing Care: Leave the Silverlon dressing in place for 7 days. After 7 days you may remove the dressing. If the incision is not draining then you may leave the ifeanyi open to air. If there is a little bit of drainage or if the ifeanyi are getting stuck on your clothing then cover the incision with a dry dressing. The ifeanyi will be removed at your 2 week follow-up appointment. Showering: You may shower with the Silverlon dressing in place. Do not let the shower spray hit the dressing directly. Pat the Silverlon dressing dry. If the dressing becomes wet underneath, then simply remove the dressing. Keep the incision dry until you are 7 days out from the day of surgery. After 7 days you may remove the Silverlon dressing and shower with the ifeanyi exposed. Let soapy water run over the ifeanyi and pat them dry. Do not scrub or soak the incision. Things To Watch For: * Drainage from the incision site that occurs more than one week after your surgery. * Increased redness at the incision site. * Fever above 102 degrees Fahrenheit. * Unusual chest pain or shortness of breath. * Call [facility] at with any of the above problems Follow-Up Visit: Follow-up with Dr. Ascencio's PA (Clark Chou) 2-3 weeks after your day of surgery. He will remove your ifeanyi and answer any questions. If you have any additional questions or concerns, Dr Ascencio is usually in the office at the same time and will be available An appointment was probably scheduled when you signed-up for surgery in the office. If you have any questions call More detailed instructions as well as Frequently Asked Questions were provided in a folder by our office when you signed-up for surgery. Please review these instructions when you get home. If you have any further questions or concerns, please feel free to call the office at [phone] Pending Studies at Discharge: No Stand-Alone Forms: [facility] Medications and DC Order Prescriptions: Continued bupropion HCl [Wellbutrin XL] 150 mg tablet extended release 24 hr 150 mg PO QAM Qty: 90 1RF fluticasone propionate [Flonase Allergy Relief] 50 mcg/actuation spray,suspension See Rx Instructions intranasal QPM Qty: 48 3RF Rx Instructions: 1-2 sprays intranasally daily in the evening; PRN congestion pregabalin [Lyrica] 100 mg capsule 100 mg PO QPM Qty: 90 3RF Rx Instructions: post op. oxycodone-acetaminophen [Percocet] 5-325 mg tablet 1 tab PO Q6H PRN (Reason: pain) Qty: 30 0RF Rx Instructions: post op oxycodone-acetaminophen [Percocet] 5-325 mg tablet 1 tab PO Q6H PRN (Reason: pain) Qty: 30 0RF Rx Instructions: post op. lorazepam 0.5 mg tablet 0.5 mg PO DAILY PRN (Reason: Anxiety) Qty: 30 0RF allergy drops 1 dose sublingual TID cholecalciferol (vitamin D3) 50 mcg (2,000 unit) capsule 50 mcg PO QAM cyanocobalamin (vitamin B-12) 1,000 mcg capsule 1,000 mcg PO QAM atorvastatin [Lipitor] 10 mg tablet 10 mg PO QAM losartan-hydrochlorothiazide [Hyzaar] 100-25 mg tablet 1 tab PO QAM metoprolol succinate 50 mg tablet extended release 24 hr 50 mg PO QAM Discharge Orders: Discharge Order (Routine); Ordered 08/06/22 Ordered By: Clark Ascencio Admission Data Admit Date/Time: 08/05/22 13:01 Attending Provider: Clark Ascencio Admit Provider: Clark Ascencio Primary Care Provider: Bianca Campo V.
[2022-08-06] MEDS ORDERED: dexAMETHasone 4 MG TAB PO SCH (08:00)
[2022-08-06] MEDS ORDERED: ATORVASTATIN 10 MG TAB PO SCH (09:00)
[2022-08-06] MEDS ORDERED: MULTIVITAMIN TAB PO SCH (09:00)
[2022-08-06] MEDS ORDERED: buPROPion XL 150 MG TABCR PO SCH (09:00)
[2022-08-06] MEDS ORDERED: LOSARTAN/HCTZ 50/12.5MG TAB PO SCH (09:00)
[2022-08-06] MEDS: DOCUSATE SODIUM 100 MG CAP PO SCH (09:21)
== END 2022-08-06 13:40 | disposition home health service (06) ==
LOC: 3E 08:21 → ASU 08:21

== ENCOUNTER 2022-08-19 19:29 | Observation (INO) ==
--- NOTE | 2022-08-19 19:46 | Emergency Department Note ---
History of Present Illness General Chief complaint: Penis Pain Stated complaint: SWELLING PENIS, SCROTUM SWELLING, NO PAIN Time Seen by Provider: 08/19/22 19:45 History of Present Illness Maximum Pain Intensity: 2 This is a 57-year-old male with history of BPH, abnormal PSA, recent right shoulder replacement 2 weeks ago, who presents with swelling and redness around his penis and scrotum. This began today. Initially began as redness and swelling on the shaft and this quickly began to envelope the head of his penis (he is circumcised) and then he developed swelling and redness around his scrotum. This is uncomfortable but does not cause a severe amount of pain. He denies any fevers, chills, body aches, abdominal pain, nausea, vomiting, feels fine otherwise. He denies any urinary symptoms like decreased urination, frequency, hematuria, pain with urination, or dribbling. No history of diabetes. Does endorse riding on a stationary bicycle over the past 2 days where he sits i n a chair, not a regular bicycle seat, and he started doing this exercise due to his shoulder replacement. Patient also does offer her that about 2 months ago he noticed that the skin on his penis and adjacent to his penis and scrotum became "more loose" than normal but he did not think much of it. Home Medications Medication Instructions Recorded Confirmed Type allergy drops 1 dose sublingual TID 01/04/22 08/20/22 History atorvastatin 10 mg tablet (Lipitor) 10 mg PO QAM 02/04/22 08/20/22 History losartan 100 1 tab PO QAM 02/04/22 08/20/22 History mg-hydrochlorothiazide 25 mg tablet (Hyzaar) cholecalciferol (vitamin D3) 50 50 mcg PO QAM 06/12/22 08/20/22 History mcg (2,000 unit) capsule cyanocobalamin (vitamin B-12) 1,000 mcg PO QAM 06/12/22 08/20/22 History 1,000 mcg capsule lorazepam 0.5 mg tablet 0.5 mg PO DAILY PRN Anxiety #30 06/14/22 08/20/22 Rx tabs metoprolol succinate 50 mg 50 mg PO QAM 07/03/22 08/20/22 History tablet,extended release 24 hr bupropion HCl 150 mg 24 hr tablet, 150 mg PO QAM #90 tabs 07/19/22 08/20/22 Rx extended release (Wellbutrin XL) fluticasone propionate 50 See Rx Instructions intranasal QPM 07/22/22 08/20/22 Rx mcg/actuation nasal #48 grams spray,suspension (Flonase Allergy Relief) oxycodone-acetaminophen 5 mg-325 1 tab PO Q6H PRN pain #30 tabs 08/01/22 08/20/22 Rx mg tablet (Percocet) pregabalin 100 mg capsule (Lyrica) 100 mg PO HS 08/20/22 08/20/22 History Allergies Allergy/AdvReac Type Severity Reaction Status Date / Time amlodipine Allergy Severe swelling - Verified 08/20/22 01:13 ankles lisinopril Allergy Severe Swelling Verified 08/20/22 01:13 of the lips potential - ankles cat dander Allergy Mild SLIGHT Verified 08/20/22 01:13 CONGESTION dog dander Allergy Mild SLIGHT Verified 08/20/22 01:13 CONGESTION grass pollen Allergy Mild SLIGHT Verified 08/20/22 01:13 CONGESTION house dust mite Allergy Mild SLIGHT Verified 08/20/22 01:13 CONGESTION mold Allergy Mild SLIGHT Verified 08/20/22 01:13 CONGESTION ragweed pollen Allergy Mild SLIGHT Verified 08/20/22 01:13 CONGESTION tree and shrub pollen Allergy Mild SLIGHT Verified 08/20/22 01:13 CONGESTION weed pollen Allergy Mild SLIGHT Verified 08/20/22 01:13 CONGESTION Past Med/Surg History Medical History Abnormal echocardiogram EF 45-50% 10/2020 echo, NOW EF 55% 12/2021 echo, follows with [place] [facility] Anxiety and depression Atypical chest pain recently evaluated by [place] [facility], suspected to be d/t prior brachial plexus block or chest wall discomfort per last office note; pt states has not had recent recurrence Diverticulitis 2-3 yrs ago, denies additional episodes History of COVID-19 11/19, denies hospitalization-mild symptoms-symptoms fully resolved Hyperlipidemia Hypertension well controlled, stable per pt Symptomatic PVCs chronic, intermittent palpitations, denies change or worsening, follows with [place] [facility] Tinnitus, bilateral Worse left Surgical History H/O toe surgery Right first toe cheilectomy > 10 yrs ago History of colonoscopy History of right shoulder replacement History of sinus surgery Image guided endoscopic sinus surgery, septoplasty, bilateral inferior turbinate reduction 08/06/[address] Lee: Grade 3 view, MAC#3, ETT (size not noted)-atraumatic x 1. No issues per anesthesia record. History of tonsillectomy History of total shoulder replacement LEFT 02/04/2222 Grade 2 view, MAC 3, ETT 7.5 + PNB. RT. Family History Mother Cardiac disorder Myocardial infarction Hypertension Grandmother (Maternal) Cardiac disorder Myocardial infarction Sister Hypertension Brother Hypertension Grandfather (Maternal) Stroke Grandmother (Paternal) Cancer Grandfather (Paternal) Myocardial infarction Other No family history of adverse response to anesthesia No family history of bleeding disorder Denies family history of Ovarian cancer Prostate cancer Breast cancer Colorectal cancer Social History Smoking Status: Never smoker Second Hand Exposure: Yes ( CHILD); Hx Alcohol Use: Yes Alcohol type: beer and wine Hx Substance Use: No Preferred Language: Croatian Communication Ability: Effective Counter Hand Required: No Beliefs That Will Affect Care: None marital status: Single Current Living Situation: Alone current occupational status: employed 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 and A total of 10 systems reviewed and were otherwise negative Physical Exam Vital Signs Vital Signs - 24 hr 08/19/22 19:38 08/19/22 21:10 08/19/22 22:34 Temperature 97.7 F Temperature Source Temporal Artery Scan Pulse Rate 78 Pulse Rate [Apical] 78 79 Respiratory Rate 16 16 20 Respiratory Effort / Characteristics Non-Labored Spontaneous Respiratory Depth Normal Blood Pressure 127/70 Blood Pressure [Left Arm] 133/76 124/75 Blood Pressure Mean 89 Blood Pressure Mean [Left Arm] 95 91 Blood Pressure Position Sitting Pulse Oximetry 96 98 100 Oxygen Delivery Method Room Air Room Air Sepsis Recent Fever Within 48 Hours No Sepsis New/Unexplained Change in Mental Status N/A Sepsis Action Taken by Nursing No Action Required 08/20/22 01:53 Temperature Temperature Source Pulse Rate Pulse Rate [Apical] 77 Respiratory Rate 16 Respiratory Effort / Characteristics Non-Labored Spontaneous Respiratory Depth Normal Blood Pressure Blood Pressure [Left Arm] 122/72 Blood Pressure Mean Blood Pressure Mean [Left Arm] 88 Blood Pressure Position Pulse Oximetry 97 Oxygen Delivery Method Room Air Sepsis Recent Fever Within 48 Hours Sepsis New/Unexplained Change in Mental Status Sepsis Action Taken by Nursing CONSTITUTIONAL: Well developed, well nourished, in no acute distress. HEAD: Normocephalic, atraumatic. EYES: conjunctivae normal, extraocular muscles intact. ENMT: External ears normal. Nose with normal external appearance, no congestion. Oral mucous membranes moist. Oropharynx normal. NECK: Full active range of motion. LYMPHATIC: There is tenderness in the left inguinal region no no palpable nodes are appreciated. RESPIRATORY: Breathing unlabored and symmetric. Lungs clear to auscultation bilaterally. No wheeze, rales, or rhonchi. CARDIOVASCULAR: Regular rate and rhythm. No murmurs, rubs, or gallops. ABDOMEN: Normal bowel sounds. Soft, nontender, no peritonitis. No masses. No hernia. GENITOURINARY: RN chef kitchen manager present. There is light erythema present on the shaft of the penis extending onto the scrotum and adjacent skin around the penis and scrotum. There is significant edema about the shaft of the penis and scrotum. Testicles are nontender bilaterally. Perineum without rash or tender ness. This is all mildly tender to palpation MUSCULOSKELETAL: Moves all extremities at all joints without pain or difficulty. SKIN: [place], warm, dry. NEUROLOGIC: Awake, alert, oriented. Gaze is conjugate. Face symmetric, speech normal. Moves head and all four extremities spontaneously. Sensation and strength grossly intact. PSYCHIATRIC: Appropriate. Normal affect Course Consultations Consultation #1: JORGE LUIS Chavira with urology in to see patient at bedside Time: 23:00 Administered Medications Discontinued Medications Piperacillin Sod/Tazobactam Sod (Zosyn) 4.5 gm in 120 mls @ 240 mls/hr IV NOW O NE Stop: 08/20/22 00:24 Last Infusion: 08/20/22 01:07 Dose: 0 mls/hr Documented By: Admin: 08/20/22 00:24 Dose: 240 mls/hr Documented By: JAIR Daptomycin 250 mg/ Syringe 5 mls @ 2.5 mls/min IV ONE ONE; Protocol Stop: 08/19/22 23:58 Last Admin: 08/20/22 01:33 Dose: 2.5 mls/min Documented By: JAIR Medical Decision Making Differential Diagnosis Hydrocele, varicocele, cellulitis, Boni's gangrene, abscess, UTI, prostatitis, sepsis, among other pathology Medical Records Attestation: I reviewed the patient's medical records. Laboratory Data Result diagrams: 08/19/22 21:08 08/19/22 21:08 Lab Results 08/19/22 08/19/22 08/19/22 Range/Units 21:08 21:08 23:21 WBC 10.91 H (4.8-10.8) K/ul RBC 4.61 L (4.63-6.08) M/uL Hgb 14.2 (14.0-18.0) g/dl Hct 41.3 (40.1-51.0) % MCV 89.6 (80.0-100.0) fL MCH 30.8 (25.0-34.0) pg MCHC 34.4 (32.0-36.0) g/dL RDW Std Deviation 41.8 (36.4-46.3) fL RDW Coeff of Elli 12.8 (11.5-14.5) % Plt Count 404 H (130-400) K/uL MPV 9.1 L (9.4-12.4) fL Immature Gran % (Auto) 0.5 % Neut % (Auto) 75.7 % Lymph % (Auto) 18.8 % [place] % (Auto) 4.3 % Eos % (Auto) 0.5 % Baso % (Auto) 0.2 % Neut # (Auto) 8.27 H (1.4-6.5) K/uL Lymph # (Auto) 2.05 (1.2-3.4) K/uL [place] # (Auto) 0.47 (0.24-0.82) K/uL Eos # (Auto) 0.05 (0-0.50) K/uL Baso # (Auto) 0.02 (0-0.2) K/uL Immature Gran # (Auto) 0.05 H (0.00-0.02) K/uL Sodium 137 (136-145) mmol/L Potassium 3.6 (3.5-5.1) mmol/L Chloride 101 (98-107) mmol/L Carbon Dioxide 29 (21-32) mmol/L Anion Gap 7 (3-11) BUN 14 (6-23) mg/dl Creatinine 1.18 (0.6-1.4) mg/dl Est Cr Clr Drug Dosing 66.5 ml/min Est GFR ( Amer) 77.8 ml/min Est GFR (Non-Af Amer) 67.1 ml/min BUN/Creatinine Ratio 11.9 (10-20) Glucose 103 H (70-99(Fasting)) mg/dl Calcium 9.2 (8.5-10.1) mg/dl Total Bilirubin 0.4 (0.2-1.0) mg/dl AST 14 (13-39) U/L ALT 10 (7-52) U/L Alkaline Phosphatase 115 H (34-104) U/L Total Protein 7.4 (6.0-8.3) gm/dl Albumin 4.3 (3.4-5.0) gm/dl Globulin 3.1 (2.5-4.0) gm/dl Albumin/Globulin Ratio 1.4 (0.9-2) Urine Color Dark Yellow Urine Appearance Clear (Clear) Urine pH 5.5 (4.5-7.5) Ur Specific [place] 1.028 (1.000-1.030) Urine Protein Negative (Negative) Urine Glucose (UA) Negative (Negative) Urine Ketones Trace H (Negative) Urine Blood Negative (Negative) Urine Nitrite Negative (Negative) Urine Bilirubin Negative (Negative) Urine Urobilinogen Negative (Negative) Ur Leukocyte Esterase Negative (Negative) SARS-CoV-2, RNA, NAAT (NEGATIVE) 08/20/22 Range/Units 00:25 WBC (4.8-10.8) K/ul RBC (4.63-6.08) M/uL Hgb (14.0-18.0) g/dl Hct (40.1-51.0) % MCV (80.0-100.0) fL MCH (25.0-34.0) pg MCHC (32.0-36.0) g/dL RDW Std Deviation (36.4-46.3) fL RDW Coeff of Elli (11.5-14.5) % Plt Count (130-400) K/uL MPV (9.4-12.4) fL Immature Gran % (Auto) % Neut % (Auto) % Lymph % (Auto) % [place] % (Auto) % Eos % (Auto) % Baso % (Auto) % Neut # (Auto) (1.4-6.5) K/uL Lymph # (Auto) (1.2-3.4) K/uL [place] # (Auto) (0.24-0.82) K/uL Eos # (Auto) (0-0.50) K/uL Baso # (Auto) (0-0.2) K/uL Immature Gran # (Auto) (0.00-0.02) K/uL Sodium (136-145) mmol/L Potassium (3.5-5.1) mmol/L Chloride (98-107) mmol/L Carbon Dioxide (21-32) mmol/L Anion Gap (3-11) BUN (6-23) mg/dl Creatinine (0.6-1.4) mg/dl Est Cr Clr Drug Dosing ml/min Est GFR ( Amer) ml/min Est GFR (Non-Af Amer) ml/min BUN/Creatinine Ratio (10-20) Glucose (70-99(Fasting)) mg/dl Calcium (8.5-10.1) mg/dl Total Bilirubin (0.2-1.0) mg/dl AST (13-39) U/L ALT (7-52) U/L Alkaline Phosphatase (34-104) U/L Total Protein (6.0-8.3) gm/dl Albumin (3.4-5.0) gm/dl Globulin (2.5-4.0) gm/dl Albumin/Globulin Ratio (0.9-2) Urine Color Urine Appearance (Clear) Urine pH (4.5-7.5) Ur Specific [place] (1.000-1.030) Urine Protein (Negative) Urine Glucose (UA) (Negative) Urine Ketones (Negative) Urine Blood (Negative) Urine Nitrite (Negative) Urine Bilirubin (Negative) Urine Urobilinogen (Negative) Ur Leukocyte Esterase (Negative) SARS-CoV-2, RNA, NAAT NEGATIVE (NEGATIVE) Imaging Data Radiologist's Impression: Preliminary Findings Only See Final Report For Complete Findings US SCROTAL: Diffuse scrotal wall thickening/edema/cellulitis greatest in the midline. Bilateral testes have normal appearance and vascular flow. No evidence for torsion or orchitis. Epididymi unremarkable. No hydrocele. No varicosities. Radiologist: Isrrael Perez M.D. Study ready at 21:43 and initial results transmitted at 22:40 MDM Narrative 57-year-old male presents with light erythema and significant swelling about the shaft of the penis and scrotum that began acutely today. Yesterday he was feeling his baseline. Initial exam, patient is afebrile, not tachycardic, normotensive resting comfortably. He has significant edema about the shaft of the penis and scrotum with a light erythematous rash in this distribution. He has some tenderness in the left inguinal region though no palpable nodes are appreciated. Patient did not requi re any pain medication. Ultrasound of the scrotum was obtained demonstrating significant scrotal wall thickening, cellulitis, and edema. Labs show a trace leukocytosis at 10.9. Platelets slightly elevated at 404, possibly some hemoconcentration. Concern for rapid progression of symptoms. Case was discussed with ED attending Dr. Salamanca who evaluated the patient at bedside. We are both very concerned about the rapid progression. Daptomycin and Zosyn administered after blood cultures were obtained. Case was also discussed with Fan Balderas PA-C who coordinated with Dr. Mcclain (urology). Fan to see patient at bedside. Do not feel comfortable discharging the patient home on oral antibiotics given rapid onset and progression of symptoms in one day, this would be high risk for rapid progression. Case was discussed with hospitalist Dr. Bourne with [facility] who agrees to admit the patient for further management. Impression & Plan Cellulitis of shaft of penis, Cellulitis of scrotum Discharge Plan Visit Data Chief Complaint: Penis Pain Stated Complaint: SWELLING PENIS, SCROTUM SWELLING, NO PAIN ED Provider: Wally Salamanca ED Midlevel Provider: Yadiel Martins Discharge Problem: Cellulitis of shaft of penis, Cellulitis of scrotum Patient Disposition: Admitted As Inpatient Condition: Fair Discharge Instructions Interventions: ED Discharge Assessment Last Done: 08/20/22 02:00 Forms Stand Alone Forms: My [facility] Prescriptions Prescriptions: No Action bupropion HCl [Wellbutrin XL] 150 mg tablet extended release 24 hr 150 mg PO QAM Qty: 90 1RF fluticasone propionate [Flonase Allergy Relief] 50 mcg/actuation spray,suspension See Rx Instructions intranasal QPM Qty: 48 3RF Rx Instructions: 1-2 sprays intranasally daily in the evening; PRN congestion oxycodone-acetaminophen [Percocet] 5-325 mg tablet 1 tab PO Q6H PRN (Reason: pain) Qty: 30 0RF Rx Instructions: post op. lorazepam 0.5 mg tablet 0.5 mg PO DAILY PRN (Reason: Anxiety) Qty: 30 0RF allergy drops 1 dose sublingual TID cholecalciferol (vitamin D3) 50 mcg (2,000 unit) capsule 50 mcg PO QAM cyanocobalamin (vitamin B-12) 1,000 mcg capsule 1,000 mcg PO QAM pregabalin [Lyrica] 100 mg capsule 100 mg PO HS Rx Instructions: post op. atorvastatin [Lipitor] 10 mg tablet 10 mg PO QAM losartan-hydrochlorothiazide [Hyzaar] 100-25 mg tablet 1 tab PO QAM metoprolol succinate 50 mg tablet extended release 24 hr 50 mg PO QAM Referrals Referrals: Bianca Campo MD [Primary Care Provider] -
[2022-08-19 21:44] LABS: Albumin Globulin Ratio 1.4 (0.9-2); Albumin Level 4.3 gm/dl (3.4-5.0); BUN Creatinine Ratio 11.9 (10-20); Bilirubin,Total 0.4 mg/dl (0.2-1.0); Calcium 9.2 mg/dl (8.5-10.1); Creatinine Clr Calc Pharmacy 66.5 ml/min; Est GFR (African American) 77.8 ml/min; Est GFR (Non-African American) 67.1 ml/min; Globulin 3.1 gm/dl (2.5-4.0); Potassium 3.6 mmol/L (3.5-5.1); Total Protein 7.4 gm/dl (6.0-8.3)
[2022-08-19 21:56] LABS: Basophils # (auto) 0.02 K/uL (0-0.2); Basophils % (auto) 0.2 %; Eosinophils # (auto) 0.05 K/uL (0-0.50); Eosinophils % (auto) 0.5 %; Hematocrit (blood only) 41.3 % (40.1-51.0); Hemoglobin 14.2 g/dl (14.0-18.0); Immature Granulocytes # (auto) 0.05 K/uL (0.00-0.02); Immature Granulocytes % (auto) 0.5 %; Lymphocytes # (auto) 2.05 K/uL (1.2-3.4); Lymphocytes % (auto) 18.8 %; Mean Corpuscular Hemoglobin 30.8 pg (25.0-34.0); Mean Corpuscular Hgb Conc 34.4 g/dL (32.0-36.0); Mean Corpuscular Volume 89.6 fL (80.0-100.0); Mean Platelet Volume 9.1 fL (9.4-12.4); Monocytes # (auto) 0.47 K/uL (0.24-0.82); Monocytes % (auto) 4.3 %; Neutrophils # (auto) 8.27 K/uL (1.4-6.5); Neutrophils % (auto) 75.7 %; Platelet Count 404 K/uL (130-400); RDW Coefficient of Variation 12.8 % (11.5-14.5); RDW Standard Deviation 41.8 fL (36.4-46.3); Red Blood Count 4.61 M/uL (4.63-6.08); White Blood Count 10.91 K/ul (4.8-10.8)
[2022-08-19] MEDS ORDERED: PIPERACILLIN/TAZOBACTAM 4.5 GM/120 ML BAG IV ONE (23:55)
[2022-08-19] MEDS ORDERED: DAPTOmycin 250 MG in SYRINGE 0 ML IV ONE (23:57)
--- NOTE | 2022-08-19 23:58 | Urology Consultation ---
Date of Consultation August 19, 2022 Assessment & Plan (1) Penile cellulitis: I had a lengthy discussion with the treating clinicians in the emergency department and they feel that patient requires admission to the hospital for initiation of broad-spectrum antibiotics. They note that they will have the hos pitalist admit the patient. From a urology perspective we recommend the following Continue broad-spectrum antibiotics which will be ordered by the treating clinician in the emergency department. We will monitor the patient's clinical response to ensure that there is no clinical deterioration or worsening of his symptoms. As noted the patient has had urinalysis/culture as well as blood cultures obtained. These culture results can be followed and antibiotics can be tailored based on these results. At time of discharge we will likely transition the patient to an oral antibiotic. At this time the patient does not appear to have any balanitis however if any erythema occurs over the glans Lotrisone cream can be considered Remedies such as NSAIDs and ice can be utilized to help alleviate some of the swelling We will monitor the patient's clinical response to the above plan with further recommendations to follow. At the present time the patient does not have any clinical signs of prostatitis and there is no clinical evidence of any abscess. If the patient does not respond well to the above treatment consideration can be given to performing additional imaging but I will not feel this is needed at this time Remainder of plan as directed by the hospitalist service. History of Present Illness Reason for Consultation: Penile swelling and erythema History of Present Illness This is a 57-year-old male who presented to the [facility] emergency department secondary to penile swelling. The patient notes that he had a right shoulder surgery 2 weeks ago at [facility]. He notes that he did not have a Summers catheter during this procedure. Patient does note that he has been less active than usual secondary to his recent surgery but he has been trying to stay active using a stationary/chair bicycle in his living quarters. The patient notes that he was doing relatively well however at approximately 5:00 PM today he noted some diffuse swelling of his penile shaft and some swelling of his scrotum bilaterally as well. He feels as though that the swelling of his penile shaft had progressed rapidly so he presented to the emergency department. He does note that he is circumcised, but over the past several days he noted that the penile skin appeared to be getting "loose" and had the appearance as though he was not circumcised. With his current presentation he denies any fevers, shakes, or chills. He notes that he is not have any urinary difficulties as he denies any dysuria or hematuria. He denies any urinary hesitancy and notes that he has a fairly strong urine stream. He does however note some postvoid dribbling and feels at times as though he does not empty his bladder completely. He denies any penile discharge. He denies any recent episodes of sexual intercourse. He denies any cuts, excoriations, or abrasions to the affected area. He notes that his bowels are working regularly and he denies any painful issues with bowel movements. Patient also denies any history of diabetes. He has not tried any biaw-iud-wzurutc remedies because of the rapid nature of his problem he presented to the emergency department. In the emergency department the patient had a scrotal ultrasound which I independently reviewed. This study showed some diffuse scrotal wall thickening/edema/cellulitis which appeared greatest in the midline. His epididymides were unremarkable. There were no evidence of hydroceles or varicoceles. There is no evidence of orchitis or testicular torsion. Labs include a CBC were white blood cell count had a slight elevation of 10.9. Hemoglobin and hematocrit were both within normal range. Platelet count was 404,000. Chemistry profile showed sodium and potassium were normal as well as his BUN and creatinine. Patient's glucose was 103. The treating clinician emergency department did order urinalysis and culture which is pending. Blood cultures have also been ordered which are pending. At the time of my interview with the patient he was resting comfortably in bed. He was in no distress. Allergies Allergy/AdvReac Type Severity Reaction Status Date / Time amlodipine Allergy Severe swelling - Verified 08/05/22 08:48 ankles cat dander Allergy Verified 08/05/22 08:48 dog dander Allergy Verified 08/05/22 08:48 grass pollen Allergy Verified 08/05/22 08:48 house dust mite Allergy Verified 08/05/22 08:48 mold Allergy Verified 08/05/22 08:48 ragweed pollen Allergy Verified 08/05/22 08:48 tree and shrub pollen Allergy Verified 08/05/22 08:48 weed pollen Allergy Verified 08/05/22 08:48 lisinopril AdvReac Severe Swelling Verified 08/05/22 08:48 of the lips potential - ankles Home Medications Medication Instructions Recorded Confirmed Type allergy drops 1 dose sublingual TID 01/04/22 08/05/22 History atorvastatin 10 mg tablet (Lipitor) 10 mg PO QAM 02/04/22 08/05/22 History losartan 100 1 tab PO QAM 02/04/22 08/05/22 History mg-hydrochlorothiazide 25 mg tablet (Hyzaar) cholecalciferol (vitamin D3) 50 50 mcg PO QAM 06/12/22 08/05/22 History mcg (2,000 unit) capsule cyanocobalamin (vitamin B-12) 1,000 mcg PO QAM 06/12/22 08/05/22 History 1,000 mcg capsule lorazepam 0.5 mg tablet 0.5 mg PO DAILY PRN Anxiety #30 06/14/22 08/05/22 Rx tabs metoprolol succinate 50 mg 50 mg PO QAM 07/03/22 08/05/22 History tablet,extended release 24 hr bupropion HCl 150 mg 24 hr tablet, 150 mg PO QAM #90 tabs 07/19/22 08/05/22 Rx extended release (Wellbutrin XL) fluticasone propionate 50 See Rx Instructions intranasal QPM 07/22/22 08/05/22 Rx mcg/actuation nasal #48 grams spray,suspension (Flonase Allergy Relief) pregabalin 100 mg capsule (Lyrica) 100 mg PO QPM #90 caps 07/29/22 08/05/22 Rx oxycodone-acetaminophen 5 mg-325 1 tab PO Q6H PRN pain #30 tabs 07/31/22 08/05/22 Rx mg tablet (Percocet) oxycodone-acetaminophen 5 mg-325 1 tab PO Q6H PRN pain #30 tabs 08/01/22 08/05/22 Rx mg tablet (Percocet) Patient History Medical History Abnormal echocardiogram EF 45-50% 10/2020 echo, NOW EF 55% 12/2021 echo, follows with [facility] Anxiety and depression Atypical chest pain recently evaluated by [facility], suspected to be d/t prior brachial plexus block or chest wall discomfort per last office note; pt states has not had recent recurrence Diverticulitis 2-3 yrs ago, denies additional episodes History of COVID-19 11/19, denies hospitalization-mild symptoms-symptoms fully resolved Hyperlipidemia Hypertension well controlled, stable per pt Symptomatic PVCs chronic, intermittent palpitations, denies change or worsening, follows with [facility] Tinnitus, bilateral Worse left Surgical History H/O toe surgery Right first toe cheilectomy > 10 yrs ago History of colonoscopy History of right shoulder replacement History of sinus surgery Image guided endoscopic sinus surgery, septoplasty, bilateral inferior turbinate reduction 08/06/[address] Lee: Grade 3 view, MAC#3, ETT (size not noted)-atraumatic x 1. No issues per anesthesia record. History of tonsillectomy History of total shoulder replacement LEFT 02/04/2222 Grade 2 view, MAC 3, ETT 7.5 + PNB. RT. Family History Mother Cardiac disorder Myocardial infarction Hypertension Grandmother (Maternal) Cardiac disorder Myocardial infarction Sister Hypertension Brother Hypertension Grandfather (Maternal) Stroke Grandmother (Paternal) Cancer Grandfather (Paternal) Myocardial infarction Other No family history of adverse response to anesthesia No family history of bleeding disorder Denies family history of Ovarian cancer Prostate cancer Breast cancer Colorectal cancer Social History Smoking Status: Never smoker Second Hand Exposure: Yes ( CHILD); Hx Alcohol Use: Yes Alcohol type: beer and wine Hx Substance Use: No Preferred Language: Romanian Communication Ability: Effective Sheet Metal Fabricator Required: No Beliefs That Will Affect Care: None marital status: Single Current Living Situation: Alone current occupational status: employed 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 [employer] Feels Safe at Home: Yes Childhood Exposure to Second-Hand Smoke: Yes Dental Care, Regularly: Yes Physical Activity Frequency: 3-4 Times per Week Seatbelt Use: always Sunscreen Use: Yes Assistive Devices: None Review of Systems Constitutional: no fever and no chills Eyes: + corrective lenses Ear, Nose, Mouth, Throat: no ear pain Respiratory: no cough Cardiovascular: no chest pain Gastrointestinal: no abdominal pain Genitourinary: + as per Subjective / HPI, + post-void dribbling and + scrotal swelling; no dysuria, no urinary hesitancy, no hematuria, no flank pain or no testicle pain Musculoskeletal: no back pain Integumentary: as per Subjective / HPI Neurologic: no localized weakness Physical Exam Constitutional: WD/WN, vitals as above Eyes: no conjunctival abnormality Wears glasses ENMT: Ears: no hearing impairment and no external ear abnormality Mouth: no oropharynx abnormality Neck: trachea midline Respiratory: normal respiratory effort; no respiratory distress and no labored breathing Cardiovascular: Rate/Rhythm: regular rate and regular rhythm Gastrointestinal (Abdomen): Abdomen is soft, nonrigid, nondistended, and nontender to palpation. There is no rebound tenderness or guarding. I did not appreciate any hernias. Musculoskeletal: No calf tenderness. No lower extremity edema bilaterally. Skin: normal turgor Neurologic: moves all extremities Psychiatric: A+Ox3, euthymic affect Genitourinary: The patient's genital region and perineum were examined. The patient had diffuse edema/swelling of the penile shaft. There is no crepitus noted in the soft tissue. The penile shaft was nontender to palpation. There is minimal erythema of the glans. There is a small amount of erythema of the penile shaft. There is minimal scrotal swelling. There is a small amount of erythema of the scrotum. The scrotum is nontender to palpation. The patient's testicles are nonpainful to palpation bilaterally. There is no erythema noted of the perineum. There are no areas of eschar in the perineum. In the perineum there is no crepitus noted in the soft tissue. With palpation of the perineum there is no pain. A rectal examination was performed and patient was noted to have normal sphincter tone with only minor discomfort on digital rectal exam. The patient did not have a boggy prostate. Results & Data ([facility]) Vital Signs (Past 12 Hours) Vital Signs Temp Pulse Pulse Resp BP BP Pulse Ox 08/19/22 22:34 79 20 124/75 100 08/19/22 21:10 78 16 133/76 98 08/19/22 19:38 36.5 C 78 16 127/70 96 O2 Del Method 08/19/22 22:34 Room Air 08/19/22 21:10 08/19/22 19:38 Room Air PG Care Time/CCT Total # of Minutes Spent Total Time Spent with Patient: Total time spent is greater than 50% in coordination of care (as documented) at patient's floor/unit and/or counseling patient: Coding Level of Care Code 76916 Inpt Consult Level 5 Diagnoses Penile cellulitis N48.22
--- NOTE | 2022-08-20 00:07 | History & Physical Report ---
Date of Service August 20, 2022 Assessment & Plan (1) Cellulitis of shaft of penis: Plan: Penile cellulitis versus balanitis Given rapid progression over 24-36 hours will treat with broad-spectrum antibiotics Differential includes penile cellulitis versus balanitis. If not improving with antibiotic therapy, can add antifungal cream We will continue Zosyn/daptomycin at this time No new sexual partners, no discharge, no dysuria UC and blood cultures are pending Ultrasound consistent with penile cellulitis No history of DM Hypertension Continue losartan, hydrochlorothiazide Chronic pain Continue home oxycodone/acetaminophen, pregabalin, Lyrica HLD Hold statin while on daptomycin DVT prophylaxis: Low risk, SCDs CODE STATUS: Full code Disposition: Medical/surgical Diet: Regular History of Present Illness Primary Care Provider: Bianca Campo MD 5pm noticed swellin gof the shaft of the penis. rapidly increased 'and ballooned' in size/edema. No prior burning. A month or two ago did notice foreskin penis had gotten more swollen/prominent, but not significantly so but did have to pull it back slightly to urinate. Had not changed very much other than getting a little looser whih he attributed to age until is suddenly changed as noted above. Did have fan and shoulder surgery 2 weeks ago No discharge No burning with urination Sitting around more since surgery, has used a sitting bike in the last few days (floor bike that you sit on a chair for). has only used for 3x 15 minute session No recent sexual partners, no change in sexual activity No fever, chills, sweats, lightheadedness, dizziness. No shortness of breath. No night sweats. No penile discharge Medical History: Reviewed Medications: Reviewed Surgical History: Reviewed Allergies: Reviewed Social History: No tobacco/Etoh Code Status: Full code Allergies Allergy/AdvReac Type Severity Reaction Status Date / Time amlodipine Allergy Severe swelling - Verified 08/05/22 08:48 ankles cat dander Allergy Verified 08/05/22 08:48 dog dander Allergy Verified 08/05/22 08:48 grass pollen Allergy Verified 08/05/22 08:48 house dust mite Allergy Verified 08/05/22 08:48 mold Allergy Verified 08/05/22 08:48 ragweed pollen Allergy Verified 08/05/22 08:48 tree and shrub pollen Allergy Verified 08/05/22 08:48 weed pollen Allergy Verified 08/05/22 08:48 lisinopril AdvReac Severe Swelling Verified 08/05/22 08:48 of the lips potential - ankles Home Medications Medication Instructions Recorded Confirmed Type allergy drops 1 dose sublingual TID 01/04/22 08/05/22 History atorvastatin 10 mg tablet (Lipitor) 10 mg PO QAM 02/04/22 08/05/22 History losartan 100 1 tab PO QAM 02/04/22 08/05/22 History mg-hydrochlorothiazide 25 mg tablet (Hyzaar) cholecalciferol (vitamin D3) 50 50 mcg PO QAM 06/12/22 08/05/22 History mcg (2,000 unit) capsule cyanocobalamin (vitamin B-12) 1,000 mcg PO QAM 06/12/22 08/05/22 History 1,000 mcg capsule lorazepam 0.5 mg tablet 0.5 mg PO DAILY PRN Anxiety #30 06/14/22 08/05/22 Rx tabs metoprolol succinate 50 mg 50 mg PO QAM 07/03/22 08/05/22 History tablet,extended release 24 hr bupropion HCl 150 mg 24 hr tablet, 150 mg PO QAM #90 tabs 07/19/22 08/05/22 Rx extended release (Wellbutrin XL) fluticasone propionate 50 See Rx Instructions intranasal QPM 07/22/22 08/05/22 Rx mcg/actuation nasal #48 grams spray,suspension (Flonase Allergy Relief) pregabalin 100 mg capsule (Lyrica) 100 mg PO QPM #90 caps 07/29/22 08/05/22 Rx oxycodone-acetaminophen 5 mg-325 1 tab PO Q6H PRN pain #30 tabs 07/31/22 08/05/22 Rx mg tablet (Percocet) oxycodone-acetaminophen 5 mg-325 1 tab PO Q6H PRN pain #30 tabs 08/01/22 08/05/22 Rx mg tablet (Percocet) Past Med/Surg History Medical History Abnormal echocardiogram EF 45-50% 10/2020 echo, NOW EF 55% 12/2021 echo, follows with [facility] Anxiety and depression Atypical chest pain recently evaluated by [facility], suspected to be d/t prior brachial plexus block or chest wall discomfort per last office note; pt states has not had recent recurrence Diverticulitis 2-3 yrs ago, denies additional episodes History of COVID-19 11/19, denies hospitalization-mild symptoms-symptoms fully resolved Hyperlipidemia Hypertension well controlled, stable per pt Symptomatic PVCs chronic, intermittent palpitations, denies change or worsening, follows with [facility] Tinnitus, bilateral Worse left Surgical History H/O toe surgery Right first toe cheilectomy > 10 yrs ago History of colonoscopy History of right shoulder replacement History of sinus surgery Image guided endoscopic sinus surgery, septoplasty, bilateral inferior turbinate reduction 08/06/[address] Lee: Grade 3 view, MAC#3, ETT (size not noted)-atraumatic x 1. No issues per anesthesia record. History of tonsillectomy History of total shoulder replacement LEFT 02/04/2222 Grade 2 view, MAC 3, ETT 7.5 + PNB. RT. Family History Mother Cardiac disorder Myocardial infarction Hypertension Grandmother (Maternal) Cardiac disorder Myocardial infarction Sister Hypertension Brother Hypertension Grandfather (Maternal) Stroke Grandmother (Paternal) Cancer Grandfather (Paternal) Myocardial infarction Other No family history of adverse response to anesthesia No family history of bleeding disorder Denies family history of Ovarian cancer Prostate cancer Breast cancer Colorectal cancer Social History Smoking Status: Never smoker Second Hand Exposure: Yes ( CHILD); Hx Alcohol Use: Yes Alcohol type: beer and wine Hx Substance Use: No Preferred Language: Slovak Communication Ability: Effective Surgical Garment Fitter Required: No Beliefs That Will Affect Care: None marital status: Single Current Living Situation: Alone current occupational status: employed 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 NAD. Cooperative. HEENT: Atraumatic, normocephalic. Pulm: CTAB A&P. -wheezes, -rales, -rhonchi. Symmetrical chest rise. No increased work of breathing. No respiratory distress. Cardiac: RRR, -mrg. Radial pulses intact and symmetrical. Abdominal: Nontender, nondistended, soft. BS present. : Diffuse swelling of the penile shaft, mild dorsal swelling, mild swelling/erythema of the glans. Minimally tender to palpation. Testicles are nonswollen and nontender, no posterior testicular tenderness. No crepitus, no perineal abnormality. Results & Data Results & Data ([facility]) Vital Signs (Past 12 Hours) Vital Signs Temp Pulse Pulse Resp BP BP Pulse Ox 08/19/22 22:34 79 20 124/75 100 08/19/22 21:10 78 16 133/76 98 08/19/22 19:38 36.5 C 78 16 127/70 96 O2 Del Method 08/19/22 22:34 Room Air 08/19/22 21:10 08/19/22 19:38 Room Air PG Care Time/CCT Total # of Minutes Spent Total Time Spent with Patient: Total time spent is greater than 50% in coordination of care (as documented) at patient's floor/unit and/or counseling patient: Coding Level of Care Code INT OBSERVATION CARE 50M LVL 2 Diagnoses Cellulitis of shaft of penis N48.22
[2022-08-20 00:26] LABS: Appearance Urine Clear (Clear); Bilirubin Urine Negative (Negative); Blood Urine Negative (Negative); Color Urine Dark Yellow; Glucose Urine UA Negative (Negative); Ketones Urine Trace (Negative); Leukocyte Esterase Urine Negative (Negative); Nitrite Urine Negative (Negative); Protein Urine Negative (Negative); Specific Gravity Urine 1.028 (1.000-1.030); Urobilinogen Urine Negative (Negative); pH Urine 5.5 (4.5-7.5)
[2022-08-20] MEDS ORDERED: POLYETHYLENE (MIRALAX) 17 GM PACK PO PRN (02:23)
[2022-08-20] MEDS ORDERED: oxyCODONE/ACETAMINOPHEN 5mg/325mg TAB PO PRN (02:23)
[2022-08-20] MEDS: PIPERACILLIN/TAZOBACTAM 3.375 GM in DEXTROSE 5% 100 ML IV SCH ×2 (05:17→14:34)
--- NOTE | 2022-08-20 07:36 | Ultrasound Report ---
SCROTAL ULTRASOUND CLINICAL HISTORY: Penis and scrotal swelling. COMPARISON STUDY: None. TECHNIQUE: Grayscale and color and duplex Doppler sonography of the scrotum was performed. FINDINGS: Right testis measures 3.8 x 2.2 x 3.4 cm and the left measures 3.8 x 1.9 x 2.4 cm. There is color flow within each testis. There is no testicular mass. There is no evidence for epididymitis. N ote is made of diffuse scrotal wall thickening and edema. No fluid collection is identified. IMPRESSION: 1. Normal sonographic appearance of the testes. 2. No evidence for epididymitis. 2. Diffuse scrotal wall thickening and edema, a nonspecific finding. No fluid collection. ACT 112: Negative or not required by law. Electronically signed by: Bharath Coronel M.D. 08/20/2022 7:33 AM
[2022-08-20] MEDS ORDERED: METOPROLOL SUCC 50MG EXT REL TAB PO SCH (09:00)
[2022-08-20] MEDS ORDERED: LOSARTAN/HCTZ 50/12.5MG TAB PO SCH (09:00)
[2022-08-20] MEDS ORDERED: buPROPion XL 150 MG TABCR PO SCH (09:00)
[2022-08-20] MEDS ORDERED: CETIRIZINE HCL 10 MG TABLET PO SCH (10:15)
--- NOTE | 2022-08-20 11:13 | Urology Progress Note ---
Date of Service August 20, 2022 Assessment & Plan (1) Cellulitis of scrotum: (2) Penile cellulitis: Plan -Overall feeling well, reports improvement in penile/scrotal swelling. -Afebrile and hemodynamically stable. -Labs reviewed 08/19- Wbc 10.91, Creatinine 1.18 -UA unremarkable, no culture pending; Blood cultures pending. -On IV Zosyn/Daptomycin. -Continue broad-spectrum antibiotics and narrow as culture data becomes available. -Continue supportive care. -Urology will continue to follow. Admission and Anticipated Discharge Date Admission Date: August 20, 2022 Subjective Patient examined at bedside this AM. Awake, resting bed on arrival. No acute distress. No fevers overnight. Denies any pain or discomfort at present. Voiding without issue. Denies hematuria or dysuria. Reports improvement in penile swelling. Review of Systems Constitutional: as per Subjective / HPI Genitourinary: + as per Subjective / HPI Physical Exam Constitutional: no acute distress Respiratory: no respiratory distress and no labored breathing Neurologic: awake Psychiatric: A+Ox3, euthymic affect Genitourinary: Minimal swelling of the penile shaft and glans. No erythema. Minimal swelling/erythema to the scrotum. Nontender with palpation. No open areas or drainage. No fluctuance or crepitus noted. Results & Data ([facility]) Vital Signs (Past 12 Hours) Vital Signs Temp Pulse Pulse Resp BP Pulse Ox O2 Del Method 08/20/22 08:02 36.8 C 70 16 125/77 95 Room Air 08/20/22 02:32 36.9 C 76 16 131/82 95 Room Air 08/20/22 02:23 36.9 C 76 16 131/82 Room Air 08/20/22 01:53 77 16 122/72 97 Room Air 08/19/22 22:34 79 20 124/75 100 Room Air 08/19/22 21:10 78 16 133/76 98 PG Care Time/CCT Total # of Minutes Spent Total Time Spent with Patient: Total time spent is greater than 50% in coordination of care (as documented) at patient's floor/unit and/or counseling patient: Coding Level of Care Code 77723 Subseq Hosp Care Lvl 2 Diagnoses Cellulitis of scrotum N49.2 Penile cellulitis N48.22
[2022-08-20] MEDS ORDERED: DAPTOmycin 250 MG in SYRINGE 0 ML IV SCH (20:00)
[2022-08-20] MEDS ORDERED: PREGABALIN 100 MG CAP PO SCH (21:00)
--- NOTE | 2022-08-20 22:01 | Discharge Summary ---
Date of Service August 20, 2022 Admission HPI Per Admitting Provider 5pm noticed swellin gof the shaft of the penis. rapidly increased 'and ballooned' in size/edema. No prior burning. A month or two ago did notice foreskin penis had gotten more swollen/prominent, but not significantly so but did have to pull it back slightly to urinate. Had not changed very much other than getting a little looser whih he attributed to age until is suddenly changed as noted above. Did have fan and shoulder surgery 2 weeks ago No discharge No burning with urination Sitting around more since surgery, has used a sitting bike in the last few days (floor bike that you sit on a chair for). has only used for 3x 15 minute session No recent sexual partners, no change in sexual activity No fever, chills, sweats, lightheadedness, dizziness. No shortness of breath. No night sweats. No penile discharge Medical History: Reviewed Medications: Reviewed Surgical History: Reviewed Allergies: Reviewed Social History: No tobacco/Etoh Code Status: Full code Principal Diagnosis Cellulitis of the scrotum and penile shaft, balanitis Discharge Exam General: A&Ox3. NAD. Cooperative. HEENT: Atraumatic, normocephalic. Pulm: CTAB A&P. -wheezes, -rales, -rhonchi. Symmetrical chest rise. No increased work of breathing. No respiratory distress. Cardiac: RRR, -mrg. Radial pulses intact and symmetrical. Abdominal: Nontender, nondistended, soft. BS present. : Diffuse swelling of the penile shaft, mild dorsal swelling, mild swelling/erythema of the glans. Minimally tender to palpation. Testicles are nonswollen and nontender, no posterior testicular tenderness. No crepitus, no perineal abnormality. Discharge Data Allergies Allergy/AdvReac Type Severity Reaction Status Date / Time amlodipine Allergy Severe swelling - Verified 08/20/22 01:13 ankles lisinopril Allergy Severe Swelling Verified 08/20/22 01:13 of the lips potential - ankles cat dander Allergy Mild SLIGHT Verified 08/20/22 01:13 CONGESTION dog dander Allergy Mild SLIGHT Verified 08/20/22 01:13 CONGESTION grass pollen Allergy Mild SLIGHT Verified 08/20/22 01:13 CONGESTION house dust mite Allergy Mild SLIGHT Verified 08/20/22 01:13 CONGESTION mold Allergy Mild SLIGHT Verified 08/20/22 01:13 CONGESTION ragweed pollen Allergy Mild SLIGHT Verified 08/20/22 01:13 CONGESTION tree and shrub pollen Allergy Mild SLIGHT Verified 08/20/22 01:13 CONGESTION weed pollen Allergy Mild SLIGHT Verified 08/20/22 01:13 CONGESTION Consultations 08/20/22 00:03 ED Decision to Admit Stat 08/20/22 02:23 Consult Urology Routine Ordered Studies 08/19/22 20:52 US scrotum/testicle Urgent Hospital Course (1) Cellulitis of shaft of penis: Penile cellulitis versus balanitis -Given the patient had a rapid progression over 24 to 36 hours patient started on broad-spectrum biotic including daptomycin Zosyn,, he responded well, I examined the patient next day symptoms are already resolved, patient was discharged on streptomycin. Patient denied having any new sexual partners no penile discharge or dysuria. Ultrasound of the genital area was consistent with pannus cellulitis. Hypertension Continue losartan, hydrochlorothiazide Chronic pain Continue home oxycodone/acetaminophen, pregabalin, Lyrica HLD Hold statin while on daptomycin DVT prophylaxis: Low risk, SCDs CODE STATUS: Full code Disposition: Medical/surgical Diet: Regular Total Time Total Time Spent Total Time Spent (In Minutes): 30 min Discharge Plan Discharge Items Patient Disposition: Home - Self-Care Reason For Visit: PENILE CELLULITIS? BALANTITIS Discharge Diagnosis: Cellulitis of the scrotum, balanitis Condition on Discharge: Fair Activity: Resume your previous activity Lifting: Gradually increase as tolerated Bathing: No limitations Sexual Activity: When tolerated Exercise/Sports: Gradually increase as tolerated Driving/Machine Use: No limitations Weightbearing: Full weightbearing Non-emergency contact: Primary Care Provider Call non-emergency contact if: you have any medication questions and your symptoms worsen Follow-up/Referrals: Bianca Campo MD [Primary Care Provider] - Diet: Low Fat Addtl Attending Provider Instructions: Please follow with appropriate hygiene measures Pending Studies at Discharge: No Stand-Alone Forms: My [facility] [employer], Smoking Cessation Medications and DC Order Prescriptions: New clindamycin HCl 300 mg capsule 300 mg PO Q8H 8 Days Qty: 24 0RF Continued bupropion HCl [Wellbutrin XL] 150 mg tablet extended release 24 hr 150 mg PO QAM Qty: 90 1RF fluticasone propionate [Flonase Allergy Relief] 50 mcg/actuation spray,suspension See Rx Instructions intranasal QPM Qty: 48 3RF Rx Instructions: 1-2 sprays intranasally daily in the evening; PRN congestion oxycodone-acetaminophen [Percocet] 5-325 mg tablet 1 tab PO Q6H PRN (Reason: pain) Qty: 30 0RF Rx Instructions: post op. lorazepam 0.5 mg tablet 0.5 mg PO DAILY PRN (Reason: Anxiety) Qty: 30 0RF allergy drops 1 dose sublingual TID cholecalciferol (vitamin D3) 50 mcg (2,000 unit) capsule 50 mcg PO QAM cyanocobalamin (vitamin B-12) 1,000 mcg capsule 1,000 mcg PO QAM pregabalin [Lyrica] 100 mg capsule 100 mg PO HS Rx Instructions: post op. atorvastatin [Lipitor] 10 mg tablet 10 mg PO QAM losartan-hydrochlorothiazide [Hyzaar] 100-25 mg tablet 1 tab PO QAM metoprolol succinate 50 mg tablet extended release 24 hr 50 mg PO QAM Discharge Orders: Discharge Order (Routine); Ordered 08/20/22 Ordered By: Fredo Barron/Other Patient Handouts: ED Cellulitis Admission Data Admit Date/Time: 08/20/22 00:21 Attending Provider: Fredo Tellez Admit Provider: Casey Bourne Primary Care Provider: Bianca Campo V. Other Providers: Casey Bourne ; Gomez Mcclain Other Interventions: Discharge Summary Assessment (RN) Last Done: 08/20/22 15:10 Coding Level of Care Code D/C DAY MANAGEMENT >30 MINS Diagnoses Cellulitis of shaft of penis N48.22
== END 2022-08-20 17:38 | disposition home or self-care (01) ==
LOC: 3N 19:29 → ED 19:29 → SUATTDRO 08-20 00:21 → 3N 08-20 02:00